=== PATIENT | male | born 1995 | race Caucasian/White ===

== ENCOUNTER 2018-03-24 12:19 | Emergency (ER) | payer OTHER, SELFPAY ==
[2018-03-24 12:20] VITALS: BP 157/96; PULSE 91; RESP 16; TEMP 36.8; O2SAT 98; BMI 41.0
--- NOTE | 2018-03-24 12:31 | ED.VISSUMM ---
- ER Visit Summary Date of Service: 03/24/18 Chief Complaint: Back pain History of Present Illness: The patient is a 22 M presents to the emergency department left-sided back pain. Patient states that yesterday, he was in his normal state of health. He states he was at work and sneezed. He had sudden onset stabbing pain in his left back that brought him to his knees. He states since then, he said tightness in his back. It is worse when he bears weight on left foot. He does get a burning pain down his posterior thigh. He denies any trouble with bowel or bladder. He denies any perianal numbness or tingling. He has no history of IV drug abuse. He has taken some anti-inflammatories with little relief. Physical Examination: Afebrile, vitals unremarkable. Well-appearing female no acute distress. Head is normocephalic, atraumatic. Pupil's equal round reactive, extraocular muscles intact. Neck supple. Heart regular rate and rhythm. Lungs clear, chest nontender. Abdomen soft, nontender, nondistended. No pulsatile mass. Patient has paraspinal tenderness in the lumbar area, but no bony tenderness. Straight leg raise is negative bilaterally. 2+ symmetric lower extremity pulses. 2+ reflexes. No clonus. No weakness of dorsiflexion, plantar flexion, or extensor hallucis longus bilaterally. Test Results: [] Emergency Department Course and Treatment: The patient's pain does seem entirely muscular. I do feel there may be a component of disc injury given the symptoms. There is no evidence of cauda equina. He has no risk factors for discitis or epidural abscess. His exam is reassuring. The patient was treated with IM analgesics and antispasmodics. He is resting comfortably. At this time, I do feel that he is safe for outpatient therapy. Patient is comfortable this plan of care. Treatment Plan: [] Disposition: [] Impression: [] This note was generated with [employer] dictation software. It may contain incorrect words, spelling, and punctuation that were not noted in review of the chart prior to signing ED Disposition - Plan for ED Patient: Chief Complaint: Back Instructions: ED Sprain Strain Lumbar Prescriptions: Naproxen [Naprosyn] 500 mg PO BID PRN #20 tab Cyclobenzaprine [Flexeril] 10 mg PO TID PRN #20 tab PRN Reason: Muscle Spasm Referrals: Baljinder Long PA [Primary Care Provider] -
[2018-03-24] MEDS: Orphenadrine 60 MG/2 ML Ampul IM (12:47)
[2018-03-24] MEDS: Ketorolac 60 MG/2 ML Vial IM (12:47)
[2018-03-24 13:09] VITALS: BP 131/70; PULSE 86; RESP 18; O2SAT 95
--- NOTE | 2018-03-24 13:09 | ED.RN ---
REVIEWED D/C INSTRUCTIONS, FOLLOW UP CARE, PRESCRIPTIONS, AND S/S THAT WOULD WARRANT A RETURN TO THE ED WITH PT. PT VERBALIZED AN UNDERSTANDING AND DENIES FURTHER QUESTIONS FOR THIS RN. PT SKIN P/W/D, RESP EVEN AND UNLABORED, PT A&O X 3, NO DISTRESS NOTED. PT AMBULATED OUT OF ED, GAIT STEADY.
== END 2018-03-24 13:11 | disposition home or self-care (01) ==
LOC: ED 12:40
PROVIDERS: Emergency Provider Emergency Medicine
DX: S39.012A Strain of muscle, fascia and tendon of lower back, initial encounter (principal); X58.XXXA Exposure to other specified factors, initial encounter; Y93.9 Activity, unspecified; Y92.9 Unspecified place or not applicable; Y99.9 Unspecified external cause status
CPT/HCPCS: 96372; 99282

== ENCOUNTER 2018-05-23 04:00 | Emergency (ER) | payer OTHER, SELFPAY ==
[2018-05-23 04:02] VITALS: BP 157/82; PULSE 97; RESP 18; TEMP 36.8; O2SAT 96; BMI 41.9
--- NOTE | 2018-05-23 04:25 | ED.DCSUM_ITS ---
- ER Visit Summary Date of Service: 05/23/18 Chief Complaint: Coughed up blood History of Present Illness: The patient is a 22 M who woke this morning with reflux and epigastric pain. He states he coughed up some phlegm with blood. He has noted more reflux symptoms of the past week or 2. He has been taking Tums occasionally. He has not been taking a lot of anti-inflammatories. He has not noted dark tarry stools. Physical Examination: Blood pressure is 157/82, other vitals normal. Patient sitting upright in bed no acute distress. Head and neck examination is unremarkable. Heart is regular rate and rhythm. Lung sounds are clear. Abdomen is soft with mild epigastric tenderness. No guarding or rebound. Active bowel sounds are noted. Test Results: [] Emergency Department Course and Treatment: Patient is given Protonix and GI cocktail. He will be started on Prilosec. We discussed placement of NG tube to determine if he truly has gastric bleeding, but this will not change our overall management. He will be referred to Dr. Dawn, on-call for surgery for possible EGD if he is not improving. Treatment Plan: [] Disposition: Discharge Impression: GERD This note was generated with [employer] dictation software. It may contain incorrect words, spelling, and punctuation that were not noted in review of the chart prior to signing ED Disposition - Plan for ED Patient: Chief Complaint: Other, Pain/Inj Referrals: [facility] Doctor,Out of [Primary Care Provider] -
--- NOTE | 2018-05-23 04:27 | DCINST.ED_ITS ---
ED Disposition - Plan for ED Patient: Disposition: Home or Assisted Living Chief Complaint: Other, Pain/Inj Instructions: ED GERD Prescriptions: Omeprazole [Prilosec] 20 mg PO DAILY #30 capsule Referrals: [facility] Doctor,Out of [Primary Care Provider] - Uday Dawn MD [STAFF PHYSICIAN] - As Needed
[2018-05-23] MEDS: Mag Hydrox/Al Hydrox/Simeth 30 ML UDC PO (04:50)
[2018-05-23] MEDS: Pantoprazole Sodium 40 MG Tablet PO (04:50)
[2018-05-23 05:16] VITALS: BP 144/80; PULSE 84; RESP 16; O2SAT 95
== END 2018-05-23 05:17 | disposition home or self-care (01) ==
LOC: ED 04:48
PROVIDERS: Emergency Provider Emergency Medicine; Family Provider Family Medicine; PCP Family Medicine
DX: K21.9 Gastro-esophageal reflux disease without esophagitis (principal); R10.9 Unspecified abdominal pain; Z87.891 Personal history of nicotine dependence
CPT/HCPCS: 99283

== ENCOUNTER → 2019-06-30 08:21 | Outpatient (CLI) | payer MEDICAID, SELFPAY ==
[2019-06-29 14:53] VITALS: BMI 45.6
[2019-06-30 12:04] LABS: Absolute Lymphocyte Count 2.72 X10^3/uL (0.83-4.51); Absolute Neutrophil Count 4.8 X10^3/uL (2.0-7.7); Basophil# 0.08 X10^3/uL; Basophil% 0.9 % (0-1); Eosinophil# 0.09 X10^3/uL; Hematocrit 49.8 % (40-54); Hemoglobin 15.6 g/dL (13.0-16.5); Lymphocyte # 2.72 X10^3/ul (4.0); Lymphocyte % 31.3 % (19-41); Mean Corp Hgb Conc 31.3 g/dL (32-36); Mean Corpuscular Hgb 28.5 pg (27.0-32.0); Mean Corpuscular Volume 90.9 fL (80-94); Mean Platelet Vol. 12.1 fl (6.2-12.0); Monocyte# 0.97 X10^3/uL; Monocyte% 11.2 % (0-10); NRBC Flagged by Analyzer 0 % (0-5); Neutrophil % 55.3 % (47-70); Platelet Count 199 K/mm3 (150-450); RBC Distribution Width CV 12.8 % (11.6-14.6); RBC Distribution Width SD 42.6 fl (35.1-43.9); Red Blood Count 5.48 M/mm3 (4.6-6.2); White Blood Count 8.7 K/mm3 (4.4-11.0)
[2019-06-30 12:34] LABS: Hemoglobin A1c 6.3 % (4.2-6.3)
[2019-06-30 12:37] LABS: ALB/GLOB Ratio 0.8 RATIO (0.9-2.4); AST(SGOT) 48 U/L (15-37); Alanine Aminotransfer ALT/SGPT 102 U/L (16-61); Albumin, Serum 3.9 g/dL (3.2-5.0); Alkaline Phosphatase 75 U/L (45-117); Anion Gap 3 (5-15); BUN 12 mg/dL (7-18); BUN/Creat Ratio 13.6 RATIO (10-20); Chloride 108 mmol/L (98-107); Cholesterol 80 mg/dL (200); Creatinine, Serum 0.88 mg/dL (0.70-1.30); EST Glomerular Filtration Rate 113 mL/min (>60); Est Glom Filt Rate - Afr Amer 137 mL/min (>60); Globulin 4.6 g/dL (2.2-4.2); Glucose 102 mg/dL (74-106); High Density Lipoprotein 42 mg/dL; Potassium 4.3 mmol/L (3.5-5.1); Protein, Total 8.5 g/dL (6.4-8.2); Sodium Level 138 mmol/L (136-145); T4 Free Direct 0.98 ng/dL (0.76-1.46); Thyroid Stim Hormone (TSH) 1.32 uIU/mL (0.358-3.74); Triglycerides 41 mg/dL; Very Low Density Lipoprotein 8 mg/dL (5-40)
== END ==
PROVIDERS: Family Provider Family Medicine; PCP Internal Medicine; Visit Provider Internal Medicine
DX: I10 Essential (primary) hypertension (principal); F32.9 Major depressive disorder, single episode, unspecified; E66.01 Morbid (severe) obesity due to excess calories; Z68.41 Body mass index [BMI] 40.0-44.9, adult
CPT/HCPCS: 36415; 80053; 80061; 83036; 84439; 84443; 85025

== ENCOUNTER → 2019-07-07 09:14 | Outpatient (CLI) | payer MEDICAID, SELFPAY ==
[2019-06-29 14:53] VITALS: BMI 45.6
--- NOTE | 2019-07-07 09:16 | US_ITS ---
STUDY: ABDOMINAL ULTRASOUND - RIGHT UPPER QUADRANT REASON FOR VISIT: Male, 23 years old elevated liver function tests. TECHNIQUE: Ultrasound evaluation of the right upper quadrant was performed with real-time and static fontenot-scale imaging. TECHNICAL QUALITY: Limited. Examination limited due to obesity. COMPARISON: None. FINDINGS: Liver: The liver is enlarged and measures 20.7 cm. There is increased echogenicity consistent with fatty infiltration. The bile ducts are within normal limits. There is hepatic color flow. The direction of portal flow is hepatopetal. There is no demonstrated mass lesion. Gallbladder: Normal distended gallbladder. The gallbladder wall measures 1.3 mm. There is a negative sonographic Davila's sign. There is no pericholecystic fluid. There are no gallstones. Common Bile Duct (C.B.D.): The common bile duct measures 2.9 mm. Pancreas: Normal size of the head, body and tail of the pancreas. There is increased echogenicity of the pancreas. There is no demonstrated pancreatic mass or cyst. Right Kidney: Normal size of the right kidney. The right kidney measures 12.6 cm x 6.9 cm x 5.1 cm. Normal renal cortex. The right cortex measures 1.8 cm. There is no demonstrated renal mass or cyst. There is no right hydronephrosis. US/Abdomen Limited IMPRESSION: Hepatomegaly. Diffuse fatty infiltration. Electronically Signed: Kenroy Garcia, at 15:15 EDT , Service support ,
== END ==
PROVIDERS: Family Provider Internal Medicine; PCP Internal Medicine; Referring Provider Internal Medicine; Visit Provider Internal Medicine
DX: R74.8 Abnormal levels of other serum enzymes (principal)
CPT/HCPCS: 76705

== ENCOUNTER → 2019-09-29 09:21 | Outpatient (CLI) | payer MEDICAID, SELFPAY ==
[2019-09-29 08:52] VITALS: BMI 47.1
[2019-09-29 12:54] LABS: AST(SGOT) 66 U/L (15-37); Alanine Aminotransfer ALT/SGPT 116 U/L (16-61); Alkaline Phosphatase 62 U/L (45-117); Anion Gap 4 (5-15); BUN 15 mg/dL (7-18); BUN/Creat Ratio 14.6 RATIO (10-20); Calcium,Total 9.5 mg/dL (8.5-10.1); Chloride 106 mmol/L (98-107); Creatinine, Serum 1.03 mg/dL (0.70-1.30); EST Glomerular Filtration Rate 95 mL/min (>60); Est Glom Filt Rate - Afr Amer 115 mL/min (>60); Globulin 4.2 g/dL (2.2-4.2); Glucose 113 mg/dL (74-106); Potassium 4.6 mmol/L (3.5-5.1); Protein, Total 8.2 g/dL (6.4-8.2); Sodium Level 140 mmol/L (136-145)
== END ==
PROVIDERS: PCP Internal Medicine; Referring Provider Internal Medicine; Visit Provider Internal Medicine
DX: I10 Essential (primary) hypertension (principal)
CPT/HCPCS: 36415; 80053

== ENCOUNTER → 2020-06-07 10:16 | Outpatient (CLI) | payer MEDICAID, SELFPAY ==
[2020-06-07 10:07] VITALS: BMI 47.1
[2020-06-07 12:15] LABS: Absolute Lymphocyte Count 2.56 X10^3/uL (0.83-4.51); Absolute Neutrophil Count 7.1 X10^3/uL (2.0-7.7); Basophil# 0.04 X10^3/uL; Basophil% 0.4 % (0-1); Eosinophil# 0.13 X10^3/uL; Eosinophils% 1.2 % (0-5); Hematocrit 47.2 % (40-54); Hemoglobin 14.7 g/dL (13.0-16.5); Lymphocyte # 2.56 X10^3/ul (4.0); Lymphocyte % 22.9 % (19-41); Mean Corp Hgb Conc 31.1 g/dL (32-36); Mean Corpuscular Hgb 28.2 pg (27.0-32.0); Mean Corpuscular Volume 90.4 fL (80-94); Mean Platelet Vol. 12.6 fl (6.2-12.0); Monocyte# 1.34 X10^3/uL; NRBC Flagged by Analyzer 0 % (0-5); Neutrophil # 7.06 X10^3/uL (2.7-7.7); Neutrophil % 63.2 % (47-70); Platelet Count 175 K/mm3 (150-450); RBC Distribution Width CV 12.9 % (11.6-14.6); RBC Distribution Width SD 43.2 fl (35.1-43.9); Red Blood Count 5.22 M/mm3 (4.6-6.2); White Blood Count 11.2 K/mm3 (4.4-11.0)
[2020-06-07 12:40] LABS: ALB/GLOB Ratio 0.9 RATIO (0.9-2.4); AST(SGOT) 39 U/L (15-37); Alanine Aminotransfer ALT/SGPT 84 U/L (16-61); Albumin, Serum 3.7 g/dL (3.2-5.0); Alkaline Phosphatase 55 U/L (45-117); Anion Gap 2 (5-15); BUN 14 mg/dL (7-18); BUN/Creat Ratio 16.8 RATIO (10-20); Calcium,Total 8.9 mg/dL (8.5-10.1); Chloride 110 mmol/L (98-107); Cholesterol 77 mg/dL (200); Creatinine, Serum 0.83 mg/dL (0.70-1.30); EST Glomerular Filtration Rate 121 mL/min (>60); Est Glom Filt Rate - Afr Amer 146 mL/min (>60); Globulin 4.3 g/dL (2.2-4.2); Glucose 105 mg/dL (74-106); High Density Lipoprotein 45 mg/dL; Potassium 4.4 mmol/L (3.5-5.1); Sodium Level 141 mmol/L (136-145); Triglycerides 30 mg/dL; Very Low Density Lipoprotein 6 mg/dL (5-40)
== END ==
PROVIDERS: PCP Internal Medicine; Referring Provider Internal Medicine; Visit Provider Internal Medicine
DX: I10 Essential (primary) hypertension (principal)
CPT/HCPCS: 36415; 80053; 80061; 85025

== ENCOUNTER 2020-06-09 05:52 | Emergency (ER) | payer MEDICAID, SELFPAY ==
[2020-06-07 10:07] VITALS: BMI 47.1
[2020-06-09 05:53] VITALS: BP 150/91; PULSE 95; RESP 18; TEMP 36.1; O2SAT 96; BMI 49.8
--- NOTE | 2020-06-09 06:07 | ED.VIS.GEN ---
History of Present Illness Chief Complaint: Complaint Informant: Patient Narrative: Patient is a 24-year-old previously healthy male who presents to the emergency department for blood in the urine. He states he is never had this happen before in the past. He noticed that this morning. He had 2 episodes of urination with bright red blood in it. This last time that he urinated it resolved. He denies having any pain with this. No concern for STDs. He denies any back pain that is past his baseline issues. No abdominal pain. No nausea/vomiting. He did have a bowel movement this morning that had some blood in it but he relates that to a hemorrhoid. No easy bleeding or bruising elsewhere. Denies any chest pain, shortness of breath or lightheadedness. He is not on any anticoagulation. No history of kidney stones. No previous abdominal surgeries. Past Medical History - Allergies and Home Meds Allergies/Adverse Reactions: Allergies No Known Allergies Allergy (Verified 06/07/20 10:07) Primary Care Physician: Aria Ovalle MD [Primary Care Provider] - Past Medical History: None Surgical History: - - Facial reconstruction, cyst removals Smoking Status: Former smoker Alcohol: Rare Drugs: None Review of Systems All systems negative except as indicated General: Denies: Chills, Fever, Sweats Eyes: Denies: Visual changes - bilaterally, Diplopia ENT: Denies: Rhinorrhea, Sore throat Cardiovascular: Denies: Chest pain, Palpitations Respiratory: Denies: Dyspnea, Cough, Dyspnea on exertion Gastrointestinal: Denies: Abdominal pain, Nausea, Vomiting, Diarrhea Genitourinary: Reports: Hematuria. Denies: Dysuria, Frequency Musculoskeletal: Denies: Back pain, Extremity Pain Skin: Denies: Rash, Wounds Neurological: Denies: Headache, Weakness, Numbness Physical Exam Vital Signs/Narrative: Vital Signs Temp Pulse Resp BP Pulse Ox 06/09/20 05:53 97 F L 95 18 150/91 H 96 Inital Vital Signs reviewed: Yes General: Well nourished, Well developed, No Acute Distress Head: Normocephalic, Atraumatic Eyes: Perrl, EOMI ENT: Moist mucous membranes, No rhinorrhea Neck: Supple, Nontender Cardiovascular: Regular rate, Regular rhythm, No murmurs Respiratory: No distress, CTA bilaterally, Chest nontender Abdomen: Soft, Nontender, Nondistended, Normal bowel sounds Back: Nontender, Normal Inspection. Negative for: CVA tenderness, Spinal tenderness Extremities: Nontender, No edema Skin: Normal color, No rash Neurological: Alert, Oriented x3, Normal Strength, Normal Sensation Psychological: Normal affect, Normal Mood Diagnostic/Tx/Re-eval - Medical Decision Making Patient presents to the emergency department for hematuria. Upon arrival to the emergency department vital signs within normal limits. Physical exam is benign without any pain. Patient able to give urine sample here in the ED. Urinalysis did not show any significant evidence of UTI. No red blood cells present. Patient otherwise feels well. Vital signs within normal limits. He is follow-up with his PCP and have a repeat urinalysis performed to evaluate for complete resolution. If he develops any significant back pain, fever/chills or inability to urinate he is to return to the emerge department immediately. Patient understands and is agreeable this plan. Will discharge home in stable condition. ED Disposition - Plan for ED Patient: Disposition: Home or Assisted Living Diagnosis: Hematuria Instructions: ED Hematuria Referrals: Aria Ovalle MD [Primary Care Provider] - 1 Week Additional Instructions: Need repeat urinalysis in 1-2 weeks to be reevaluated.
[2020-06-09 06:12] LABS: Bacteria 0 SEEN /hpf (None Seen); Mucous, Urine 0 SEEN /hpf (<or=2+)
[2020-06-09 06:21] LABS: Color, Urine Yellow (Yellow); Glucose, Dipstick Normal (Normal); Ketone-Dipstick Negative (Negative); Leukocyte Esterase-Dipstick 25 /ul (Negative); Nitrite-Dipstick Negative (Negative); Occult Blood-Urine 25 /ul (Negative); Protein-Dipstick 15 mg/dl (Negative); Urine Bilirubin Dipstick Negative (Negative); Urine Clarity Sl. Cloudy (Clear); Urine Urobilinogen Normal (Normal)
[2020-06-09 07:06] LABS: Red Blood Cells-Urine 0-5 SEEN /hpf (0-5); Squamous Epithelial Cells - UA 0-5 SEEN /hpf (0-5); White Blood Cells 0-5 SEEN /hpf (0-5)
== END 2020-06-09 07:27 | disposition home or self-care (01) ==
PROVIDERS: Emergency Provider Emergency Medicine; PCP Internal Medicine
DX: R31.9 Hematuria, unspecified (principal); K64.9 Unspecified hemorrhoids; Z87.891 Personal history of nicotine dependence
CPT/HCPCS: 81001; 99282

== ENCOUNTER → 2020-06-21 | Outpatient (CLI) | payer MEDICAID, SELFPAY ==
[2020-06-21 08:09] LABS: Mucous, Urine 0 SEEN /hpf (<or=2+); Red Blood Cells-Urine 0 SEEN /hpf (0-5)
[2020-06-21 12:24] LABS: Color, Urine Straw (Yellow); Glucose, Dipstick Normal (Normal); Ketone-Dipstick Negative (Negative); Leukocyte Esterase-Dipstick Negative /ul (Negative); Nitrite-Dipstick Negative (Negative); Occult Blood-Urine Negative /ul (Negative); Protein-Dipstick Negative (Negative); Specific Gravity, Urine 1.015 (1.002-1.030); Urine Bilirubin Dipstick Negative (Negative); Urine Clarity Clear (Clear); Urine Urobilinogen Normal (Normal)
[2020-06-21 12:39] LABS: Squamous Epithelial Cells - UA 0-5 SEEN /hpf (0-5); White Blood Cells 0-5 SEEN /hpf (0-5)
[2020-06-21 12:40] LABS: Bacteria RARE /hpf (None Seen)
== END | disposition home or self-care (01) ==
LOC: LABSPEC 08:08
PROVIDERS: PCP Internal Medicine; Referring Provider Nurse Practitioner Family; Visit Provider Nurse Practitioner Family
DX: R31.9 Hematuria, unspecified (principal)
CPT/HCPCS: 81001

== ENCOUNTER → 2020-06-24 07:43 | Outpatient (CLI) | payer MEDICAID, SELFPAY ==
[2020-06-09 05:53] VITALS: BMI 49.8
--- NOTE | 2020-06-24 07:43 | US_ITS ---
STUDY: ABDOMINAL ULTRASOUND - RIGHT UPPER QUADRANT REASON FOR VISIT: Male, 24 years old ABN LABS TECHNIQUE: Ultrasound evaluation of the right upper quadrant was performed with real-time and static fontenot-scale imaging. TECHNICAL QUALITY: Adequate. COMPARISON: None. FINDINGS: Liver: The liver measures 21.8 cm. There is increased echogenicity consistent with fatty infiltration. There is focal sparing near the gallbladder bed. The bile ducts are within normal limits. There is hepatic color flow. The direction of portal flow is hepatopetal. There is no demonstrated mass lesion. Gallbladder: Normal distended gallbladder. The gallbladder wall measures 2.6 mm. There is a negative sonographic Davila''s sign. There is no pericholecystic fluid. There are no gallstones. Common Bile Duct (C.B.D.): The common bile duct measures 5.3 mm. Pancreas: Normal size of the head, body and tail of the pancreas. There is normal echogenicity of the pancreas. There is no demonstrated pancreatic mass or cyst. Right Kidney: Normal size of the right kidney. The right kidney measures 12.4 x 5.7 x 4.4 cm. Normal renal cortex. The right cortex measures 2 cm. There is no demonstrated renal mass or cyst. There is no right hydronephrosis. US/Abdomen Limited IMPRESSION: Fatty infiltration of the liver. Electronically Signed: Hannah Gill, at 1:46 EDT Tel , Service support ,
== END ==
PROVIDERS: PCP Internal Medicine; Referring Provider Internal Medicine; Visit Provider Internal Medicine
DX: R74.8 Abnormal levels of other serum enzymes (principal)
CPT/HCPCS: 76705

== ENCOUNTER → 2020-07-02 11:24 | Outpatient (CLI) | payer MEDICAID, SELFPAY ==
[2019-10-27 17:01] VITALS: BMI 47.1
[2020-06-09 05:53] VITALS: BMI 49.8
--- NOTE | 2020-07-02 11:25 | US_ITS ---
HISTORY: left testicle lump and tenderness ADDITIONAL HISTORY: None provided. COMPARISON: None TECHNIQUE: Sonographic images of the scrotum were acquired utilizing grayscale and color Doppler images. Spectral Doppler imaging also performed. Number of images including paperwork: 86 FINDINGS: TESTES: Right testis: 5.1 x 2.7 x 3.4 cm. Left testis: 4.9 x 2.3 x 3.0 cm. Testicular echogenicity appears symmetric. Testicular flow is seen bilaterally on Doppler imaging, essentially symmetric. Cyst is noted along the periphery of the left testis anteriorly measuring 7 x 7 x 5 mm. EPIDIDYMIDES: Normal in size with normal-appearing flow. HYDROCELE: None detected. VARICOCELE: None detected. SCROTAL SKIN: No significant thickening. US/Testicular with Arterial Flow IMPRESSION: No acute scrotal abnormality is sonographically apparent. Left sided tunica albuginea cyst. at [id number] Reported and signed by: Romana Silver MD Electronically Signed: Romana Silver MD at 22:58 EDT Tel , Service support ,
== END ==
PROVIDERS: PCP Internal Medicine; Referring Provider Nurse Practitioner Family; Visit Provider Nurse Practitioner Family
DX: N50.812 Left testicular pain (principal); N50.89 Other specified disorders of the male genital organs
CPT/HCPCS: 76870; 93976

== ENCOUNTER 2021-06-10 13:17 | Emergency (ER) | payer MEDICAID, SELFPAY ==
[2021-06-10 13:18] VITALS: BP 160/100; PULSE 96; RESP 18; TEMP 36.4; O2SAT 97; BMI 47.5
--- NOTE | 2021-06-10 14:35 | RAD_ITS ---
INDICATION: Injury/Pain EXAMINATION/TECHNIQUE: X-RAY - XR Spine Lumbar 2 or 3 Views COMPARISON: None. FINDINGS: Straightening of the alignment of the columns of the lumbar spine is visualized, no evidence of spondylolisthesis is seen. Multilevel degenerative endplate changes visualized but no evidence of compression deformity of the lumbar vertebral bodies. Decreased intervertebral disc height visualized most prominent at L5-S1 and to a lesser extent at L1-L2. Increased density visualized in the posterior column at L5. No evidence of lytic or sclerotic bone lesion is seen. Included bowel gas pattern is non-obstructive. IMPRESSION: Mild degenerative changes, no acute osseous abnormality seen. Electronically Signed: Franco Gonsalez MD at 15:31 EDT Tel , Service support , RAD/Lumbar Spine 2 or 3 Views
--- NOTE | 2021-06-10 14:41 | EDS_ITS ---
HPI History of Present Illness Chief Complaint: Back Informant: patient Onset/Context/Timing Onset: Weeks (3) Context: Gradual Onset Timing: Continuous Quality: Sharp and Aching Location: Lumbar, Buttock, Right Leg and Left Leg Worsened by: improves with Movement, Ambulation and Bending Relieved by: Nothing Associated Symptoms Associated Symptoms: Radiation to Right Leg and Radiation to Left Leg; Negative for Numbness, Tingling, Fever, Abdominal Pain, Dysuria, Unable to Ambulate, Unable to Transfer, Urinary Retention, Urinary Incontinence, Constipation and Fecal Incontinence Narrative Narrative: Patient presents with back pain that has been getting worse over the past 3 weeks. Patient states it is over his lower lumbar area. Patient states it radiates into both legs but is worse on the left. Patient states his pain is worse with any movement, ambulation, or bending. Patient states nothing seems to help with the pain. Patient states that he went to a chiropractor yesterday and today his pain was much worse. Patient describes his pain is sharp at times but constant aching. Patient denies any radiation of the pain to his abdomen. Patient denies any dysuria or hematuria. Patient denies any urinary or stool incontinence. Patient denies any saddle anesthesia. [facility] Medical History (Updated 06/10/21 @ 16:[address] Nathaniel Yu DO) Back problem Bone fracture Frequent headaches Hypertension Sciatica Medical History no medical history Home Medications cyclobenzaprine 10 mg PO QHS PRN PRN #10 tablet 06/10/21 [Rx Last Taken Unknown] hydrocodone-acetaminophen 1 tab PO Q6H PRN PRN 3 Days #10 tablet 06/10/21 [Rx Last Taken Unknown] Allergy/AdvReac Type Severity Reaction Status Date / Time No Known Allergies Allergy Verified 06/07/20 10:07 Family History Other Cancer Diabetes High cholesterol Hypertension Surgical History History of facial surgery History of removal of cyst Social History Smoking Status: Never smoker alcohol intake: current alcohol intake frequency: holidays/special occasions only Alcohol type: beer substance use type: does not use what type of physical activity do you participate in: none ROS ROS ED Constitutional Constitutional ED: Denies chills or fever(s) Eyes Eyes: Denies blurry vision or change in vision ENT ENT ED: Denies rhinorrhea or sore throat Cardiovascular Cardiovascular: Denies chest pain or palpitations Respiratory/Chest Respiratory/Chest: Denies cough or dyspnea Gastrointestinal Gastrointestinal: Denies nausea or vomiting Genitourinary Genitourinary ED: Denies dysuria or hematuria Musculoskeletal Musculoskeletal: Reports back pain; Denies neck pain Integumentary Denies abscess or rash Neurologic Neurologic: Reports headache(s); Denies weakness Allergic/Immunologic Allergic/Immunologic ED: Denies mouth swelling or urticaria EXAM Physical Exam Const Vital Signs: 06/10/21 13:18 Temperature 97.5 F L Temperature Source Temporal Pulse Rate 96 Respiratory Rate 18 Blood Pressure 160/100 H Blood Pressure Mean 120 Pulse Ox 97 Oxygen Delivery Method Room Air Positive well nourished, well developed and obese General Appearance ED: well developed Nutritional Appearance: obese HEENT Reports moist mucous membranes Neck supple and no JVD Back/Spine normal to inspection Back/Spine Narrative: There is some mild tenderness with spasm of the lumbar paraspinal muscles. There is mild midline tenderness. There is no bony crepitance or step-off. Lumbar Spine / Lower Back: ROM limited and straight leg raise negative bilate rally Extremity normal to inspection General Extremety ED: Negative for edema or tenderness General Extremity: Negative for edema Neuro oriented x3 and no sensory deficits noted Sensorium / Orientation: alert Motor Exam: strength 5/5 throughout Deep Tendon Reflexes: Rt Patellar (L4): 2+, Lt Patellar (L4): 2+, Rt Ankle (S1): 2+ and Lt Ankle (S1): 2+ Deep Tendon Reflexes Back: Rt Patellar (L4): 2+, Lt Patellar (L4): 2+, Rt Ankle (S1): 2+ and Lt Ankle (S1): 2+ Psych mental status grossly normal MDM MDM MDM Narrative Medical decision making narrative: X-rays of the lumbar spine were obtained. There are 3 views. On my interpretation, there are some mild degenerative changes. There is no acute fracture or spondylolisthesis. Radiologist also interpreted the x-rays and agrees. Patient was given an injection of morphine a nd Norflex here. Patient was given a prescription for a short course of [place] and a course of Flexeril to take at bedtime. Patient was instructed to follow- up with his primary care physician in 5 to 7 days. Patient understood and was agreeable with the plan. All questions were answered. Radiography X-Ray: LS SPine, Read by ED Physician, Read by Radiologist, No Fracture, Normal Bony Alignment and DJD Diagnostic Testing: Radiology Impression Lumbar Spine X-Ray 06/10/21 14:35 Discharge Plan Triage Chief Complaint: Back ED Provider: Nathaniel Yu Dx/Rx/DC Orders Clinical Impression: Acute low back pain Instructions: ED Back Pain (Acute or Chronic) Prescriptions: New cyclobenzaprine [cyclobenzaprine] 10 MG tablet 10 mg PO QHS PRN PRN (Reason: Muscle Spasm) Qty: 10 RF: 0 hydrocodone-acetaminophen [hydrocodone-acetaminophen] 1 TABLET tablet 1 tab PO Q6H PRN PRN (Reason: Pain) 3 Days Qty: 10 RF: 0 Primary Care Provider: Aria Ovalle Referrals: Aria Ovalle MD [Primary Care Provider] - 3-5 Days Disposition Disposition: Home, Self Care
[2021-06-10] MEDS: Morphine 4 MG/ML Syringe IM (14:52)
[2021-06-10] MEDS: Orphenadrine 60 MG/2 ML Ampul IM (14:52)
[2021-06-10 16:47] VITALS: BP 150/88; PULSE 68; RESP 12; O2SAT 98
== END 2021-06-10 16:50 | disposition home or self-care (01) ==
PROVIDERS: Emergency Provider Emergency Medicine; PCP Internal Medicine
DX: M54.50 Low back pain, unspecified (principal); I10 Essential (primary) hypertension; R51.9 Headache, unspecified; E66.9 Obesity, unspecified
CPT/HCPCS: 72100; 96372; 99282

== ENCOUNTER 2024-12-27 09:51 | Inpatient (IN) | payer BC, SELFPAY ==
[2024-12-27] VITALS (11 sets, daily range): BP systolic 118–141; BP diastolic 50–87; PULSE 59–90; RESP 10–27; TEMP 35.6–37.2; O2SAT 94–99; BMI 40.2; BMI 40.1
--- NOTE | 2024-12-27 10:07 | ED.VIS.GI ---
HPI HPI - GI History of Present Illness Chief Complaint: Flank Pain Detail of Chief Complaint: Left flank pain Informant: patient Narrative Narrative: Patient presents with left flank pain that started few days ago. Patient states that he came down with some upper respiratory symptoms about a week ago and thought maybe he had pneumonia because his son was recently diagnosed with pneumonia yesterday. Patient started having left low back pain yesterday and lower abdomen pain today. Yesterday he had fever up to 1029 at home. Patient went to urgent care this morning and had his urine tested and apparently was infected so he was referred to the ER. Patient has never had history of UTI. No history of diverticulitis. He has had no vomiting. Denies any blood in the stool. [facility] Medical History (Updated 12/27/24 @ 11:[address] Vivien Garsia DO) Sciatica Hypertension Frequent headaches Bone fracture Back problem Home Medications ?Medication ?Instructions ?Recorded ?Last Taken ?Type NK 12/27/24 Unknown History Allergy/AdvReac Type Severity Reaction Status Date / Time No Known Allergies Allergy Verified 12/27/24 10:31 Family History Other Cancer Diabetes High cholesterol Hypertension Surgical History History of facial surgery History of removal of cyst Social History Smoking Status: Never smoker alcohol intake: current alcohol intake frequency: holidays/special occasions only Alcohol type: beer substance use type: does not use what type of physical activity do you participate in: none ROS ROS ED Review of Systems ROS Unobtainable: other Constitutional Constitutional ED: Reports lethargy; Denies chills, fever(s), sweats or weight loss Eyes Eyes: Denies blurry vision, change in vision or diplopia ENT ENT ED: Denies rhinorrhea or sore throat Cardiovascular Cardiovascular: Denies chest pain, orthopnea or racing heartbeat Respiratory/Chest Respiratory/Chest: Denies cough, dyspnea, dyspnea on exertion, orthopnea or sputum Gastrointestinal Gastrointestinal: Reports abdominal pain; Denies diarrhea, nausea or vomiting Genitourinary Genitourinary ED: Denies dysuria, hematuria or urinary frequency Musculoskeletal Musculoskeletal: Denies arthralgias, back pain, myalgias or neck pain Integumentary Denies abscess, Abrasions or rash Neurologic Neurologic: Denies headache(s) or weakness Psychiatric Psychiatric: Denies anxiety, depression or suicidal thoughts Endocrine Endocrinology: Denies polydipsia, polyphagia or polyuria Hematologic/Lymphatic Hematologic/Lymphatic: Denies easy bleeding, easy bruising or lymphadenopathy Allergic/Immunologic Allergic/Immunologic ED: Denies mouth swelling, tongue swelling or urticaria EXAM Physical Exam Const Vital Signs: 12/27/24 09:52 12/27/24 10:29 12/27/24 11:00 Temperature 98.5 F 96.1 F L Temperature Source Temporal Temporal Pulse Rate 90 76 71 Respiratory Rate 16 18 10 L Blood Pressure 137/87 H 141/68 H 137/69 H Blood Pressure Mean 103 92 91 Pulse Ox 99 99 96 Oxygen Delivery Method Room Air Room Air Room Air 12/27/24 11:00 Temperature 98 F Temperature Source Oral Pulse Rate 71 Respiratory Rate 10 L Blood Pressure 137/69 H Blood Pressure Mean 91 Pulse Ox 95 Oxygen Delivery Method Room Air Positive well nourished and well developed General Appearance ED: well developed and NAD HEENT Reports TM's clear and moist mucous membranes normocephalic and atraumatic; Negative for trauma or tenderness Tympanic Membrane ED: Yes TM's clear Eyes PERRL and EOMs intact bilaterally General Eye ED: Negative for pale conjunctiva or scleral icterus Neck no lymphadenopathy, supple and no JVD General: Negative for tenderness Chest Wall inspection of chest normal and palpation of chest normal Chest: Negative for tenderness Resp normal respiratory effort and clear to auscultation bilaterally Effort and Inspection: Negative for respiratory distress or pain with movement Auscultation: Negative for rhonchi, wheezes or diminished lung sounds Cardio regular rate, regular rhythm, S1 normal heart sound, S2 normal heart sound and no murmurs Peripheral Pulses: pulses 2+ throughout GI normal to inspection, nondistended, normoactive bowel sounds, soft to palpation, non-distended and no masses GI Narrative: Tenderness diffusely to the suprapubic region as well as left lower quadrant and some mild tenderness over the right lower quadrant. There are some guarding. There is no rebound, rigidity, or. Signs. No mass palpated. Back/Spine no CVA tenderness and no thoracic nor lumbar tenderness Extremity normal to inspection General Extremety ED: Negative for edema General Extremity: Negative for edema Neuro oriented x3, CN's II-XII intact bilaterally, no sensory deficits noted and gait normal Sensorium / Orientation: awake, alert, oriented to person, oriented to place and oriented to time Motor Exam: strength 5/5 throughout and strength abnormal Psych mental status grossly normal Skin no rashes or lesions noted and no wounds MDM MDM MDM Narrative Medical decision making narrative: Patient presents with abdominal pain and concern for possible UTI at urgent care. No significant medical history other than hypertension. No prior abdominal surgeries. On differential would be UTI versus kidney stone or diverticulitis or other acute process. IV line established. CBC with differential obtained showed an elevated white count of 19.4 with hemoglobin 15 and platelet count of 165. Urinalysis unremarkable. CT scan of the abdomen pelvis showed acute sigmoid diverticulitis with focal contained perforation along the antimesenteric side of the sigmoid colon. Patient was started on Zosyn IV. Will discussed with general surgeon on-call for admission to the hospital and definitive care. Lab Data Attestation: I reviewed the patient's lab results. Labs: Laboratory Results - last 24 hr 12/27/24 12/27/24 10:30 11:07 WBC 19.4 H RBC 5.28 Hgb 15.0 Hct 46.7 MCV 88.4 MCH 28.4 MCHC 32.1 RDW Std Deviation 42.3 RDW Coeff of Gray 13.0 Plt Count 165 MPV 13.0 H Immature Gran % (Auto) 0.500 Neut % (Auto) 71.5 H Lymph % (Auto) 16.2 L [place] % (Auto) 11.3 H Eos % (Auto) 0.1 Baso % (Auto) 0.4 Absolute Neuts (auto) 13.9 H Absolute Lymphs (auto) 3.14 Nucleated RBC % 0 Differential Comment SCANNED Urine Color Yellow Urine Clarity Clear Urine pH 7.0 Ur Specific [place] 1.010 Urine Protein TNP Urine Glucose (UA) Normal Urine Ketones 15 H Urine Occult Blood Negative Urine Nitrite Negative Urine Bilirubin Negative Urine Urobilinogen 4 H Ur Leukocyte Esterase 25 H Radiography Diagnostic Testing: Clinical Impression(s) from Imaging Studies Abdomen/Pelvis CT 12/27/24 10:52 IMPRESSION: Sigmoid diverticulitis. Focal contained perforation along the anti mesenteric side of the sigmoid colon. Reading Location: [facility] Discharge Plan Triage Chief Complaint: Flank Pain ED Provider: Vivien Garsia Dx/Rx/DC Orders Clinical Impression: Acute diverticulitis, Leukocytosis, Bowel perforation Prescriptions: No Action NK Primary Care Provider: Aria Ovalle Referrals: Aria Ovalle MD [Primary Care Provider] - Print Language: Arabic Disposition Disposition: Acute Care Hospital [facility]
[2024-12-27] MEDS: 0.9% Normal Saline (1000mL) 1,000 ML 125 ML IV (10:24)
[2024-12-27 10:38] LABS: Absolute Lymphocyte Count 3.14 X10^3/uL (0.83-4.51); Absolute Neutrophil Count 13.9 X10^3/uL (2.0-7.7); Basophil# 0.07 X10^3/uL; Basophil% 0.4 % (0-1); Eosinophil# 0.02 X10^3/uL; Eosinophils% 0.1 % (0-5); Hematocrit 46.7 % (40-54); Lymphocyte # 3.14 X10^3/ul (0.83-4.51); Lymphocyte % 16.2 % (19-41); Mean Corp Hgb Conc 32.1 g/dL (32-36); Mean Corpuscular Hgb 28.4 pg (27.0-32.0); Mean Corpuscular Volume 88.4 fL (80-94); Monocyte# 2.18 X10^3/uL; Monocyte% 11.3 % (0-10); NRBC Flagged by Analyzer 0 % (0-5); Neutrophil # 13.87 X10^3/uL (2.7-7.7); Neutrophil % 71.5 % (47-70); POSITIVE DIFFERENTIAL YES; Platelet Count 165 K/mm3 (150-450); RBC Distribution Width SD 42.3 fl (35.1-43.9); Red Blood Count 5.28 M/mm3 (4.6-6.2); White Blood Count 19.4 K/mm3 (4.4-11.0)
[2024-12-27 10:41] LABS: Differential Indicated SCAN CRITERIA MET
--- NOTE | 2024-12-27 10:48 | ED.RN ---
Pt had a vagal episode after IV start. It scared the patient and he was tearful. He said he was seeing things but wasnt able to say anything. Pt turned white and was super diaphoretic. He had some posturing and after a couple of seconds came to and was ok. Dr Garsia is aware.
--- NOTE | 2024-12-27 10:52 | CT_ITS ---
PROCEDURE: ABDOMEN/PELVIS WITHOUT CONT 12/27/2024 REASON FOR EXAM: Left flank pain. Left lower quadrant pain. TECHNIQUE: Abdomen and pelvis CT without intravenous contrast. Noncontrast technique limits evaluation of the abdominal and pelvic viscera. Coronal and Sagittal reconstruction series were provided. CT dL volume: 23.97 DLP: 1443.28 One or more dose reduction techniques were used (e.g., Automated exposure control, adjustment of the mA and/or kV according to patient size, use of iterative reconstruction technique). PATIENT PREPARATION: Per protocol ORAL CONTRAST TYPE: None. COMPARISON: None available. FINDINGS: Lung bases: Unremarkable. Liver: Normal size. No obvious mass. Gallbladder: Unremarkable Spleen: Normal size. Pancreas: Normal size. No surrounding inflammation. Adrenals: Unremarkable Kidneys: No urolithiasis. No hydronephrosis. Bladder: Unremarkable Bowel: Sigmoid colon diverticula with wall thickening and adjacent inflammatory changes.. Tiny air bubble is seen along the anti mesenteric side of the sigmoid colon suggestive of localized contained perforation. Appendix: The appendix is not identified. There is no inflammatory process identified in the right lower quadrant to suggest appendicitis. Lymph nodes: Unremarkable. Vasculature: The abdominal aorta and IVC contours are normal. Noncontrast technique limits evaluation. Peritoneum / Retroperitoneum: Bones: Unremarkable CT/Abdomen/Pelvis without Cont IMPRESSION: Sigmoid diverticulitis. Focal contained perforation along the anti mesenteric side of the sigmoid colon. Reading Location: [place] [id number]
[2024-12-27 11:06] LABS: Differential Comment SCANNED
[2024-12-27 11:12] LABS: Bacteria 0 SEEN /hpf (None Seen); Mucous, Urine 0 SEEN /hpf (<or=2+)
[2024-12-27 11:24] LABS: Color, Urine Yellow (Yellow); Glucose, Dipstick Normal (Normal); Ketone-Dipstick 15 mg/dl (Negative); Leukocyte Esterase-Dipstick 25 /ul (Negative); Nitrite-Dipstick Negative (Negative); Occult Blood-Urine Negative /ul (Negative); Urine Bilirubin Dipstick Negative (Negative); Urine Clarity Clear (Clear); Urine Urobilinogen 4 mg/dl (Normal)
[2024-12-27 11:49] LABS: Red Blood Cells-Urine 0-5 SEEN /hpf (0-5); White Blood Cells 5-10 SEEN /hpf (0-5)
[2024-12-27] MEDS: Ondansetron 4 MG/2 ML Vial IV (11:50)
[2024-12-27] MEDS: Morphine 4 MG/ML Syringe IV (11:50)
[2024-12-27 11:53] LABS: Squamous Epithelial Cells - UA 0-5 SEEN /hpf (0-5)
[2024-12-27 11:54] LABS: Coarse Granular Cast 0-5 SEEN /lpf (0-5 /lpf); Fine Granular Cast- Urine 0-5 SEEN /lpf (0-5); Hyaline Cast 0-5 SEEN /lpf (0-5)
[2024-12-27 11:54] LABS: Anion Gap 12 (5-15); BUN 11 mg/dL (4-19); BUN/Creat Ratio 11.2 RATIO (10-20); Calcium,Total 9.3 mg/dL (7.6-11.0); Carbon Dioxide 22.3 mmol/L (21.0-32.0); Chloride 105 mmol/L (98-108); Creatinine, Serum 0.97 mg/dL (0.70-1.20); EST Glomerular Filtration Rate 109 (>60); Glucose 100 mg/dL (70-99); Potassium 3.8 mmol/L (3.3-5.1); Sodium Level 139 mmol/L (133-145)
[2024-12-27] MEDS: Piperacil/Tazobactam 4.5 GM in 0.9% Normal Saline (100mL MB+) 100 ML IV (12:06)
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
--- NOTE | 2024-12-27 15:44 | ED.RN ---
Pt is requesting to walk to the floor on his own instead of a bed or a wheelchair.
[2024-12-27] MEDS: 0.9% Normal Saline (1000mL) 1,000 ML 150 ML IV ×2 (16:27→21:34)
[2024-12-27] MEDS: Piperacil/Tazobactam 3.375 GM in 0.9% Normal Saline (50mL MB+) 50 ML IV ×2 (16:36→21:34)
[2024-12-28 04:17] VITALS: BP 140/68; PULSE 68; RESP 16; TEMP 36.9; O2SAT 98
[2024-12-28] MEDS: 0.9% Normal Saline (1000mL) 1,000 ML 150 ML IV (04:18)
[2024-12-28] MEDS: Piperacil/Tazobactam 3.375 GM in 0.9% Normal Saline (50mL MB+) 50 ML IV ×3 (06:02→23:00)
[2024-12-28 07:02] LABS: Absolute Lymphocyte Count 2.58 X10^3/uL (0.83-4.51); Absolute Neutrophil Count 12.9 X10^3/uL (2.0-7.7); Basophil# 0.06 X10^3/uL; Basophil% 0.3 % (0-1); Eosinophil# 0.05 X10^3/uL; Eosinophils% 0.3 % (0-5); Hematocrit 44.4 % (40-54); Hemoglobin 14.2 g/dL (13.0-16.5); Lymphocyte # 2.58 X10^3/ul (0.83-4.51); Lymphocyte % 14.3 % (19-41); Mean Corpuscular Hgb 28.7 pg (27.0-32.0); Mean Corpuscular Volume 89.9 fL (80-94); Mean Platelet Vol. 13.5 fl (6.2-12.0); Monocyte# 2.14 X10^3/uL; Monocyte% 11.8 % (0-10); NRBC Flagged by Analyzer 0 % (0-5); Neutrophil # 12.91 X10^3/uL (2.7-7.7); Neutrophil % 71.4 % (47-70); POSITIVE DIFFERENTIAL YES; Platelet Count 160 K/mm3 (150-450); RBC Distribution Width CV 13.2 % (11.6-14.6); RBC Distribution Width SD 43.2 fl (35.1-43.9); Red Blood Count 4.94 M/mm3 (4.6-6.2); White Blood Count 18.1 K/mm3 (4.4-11.0)
[2024-12-28 07:12] LABS: Anion Gap 10 (5-15); BUN 11 mg/dL (4-19); BUN/Creat Ratio 11.9 RATIO (10-20); Calcium,Total 9.1 mg/dL (7.6-11.0); Carbon Dioxide 25.6 mmol/L (21.0-32.0); Chloride 105 mmol/L (98-108); Creatinine, Serum 0.92 mg/dL (0.70-1.20); EST Glomerular Filtration Rate 117 (>60); Glucose 97 mg/dL (70-99); Phosphorus 3.3 mg/dL (2.7-4.5); Potassium 4.4 mmol/L (3.3-5.1); Sodium Level 141 mmol/L (133-145)
[2024-12-28 07:39] LABS: Differential Indicated SCAN CRITERIA MET
[2024-12-28 08:00] VITALS: BP 127/42; PULSE 67; RESP 18; TEMP 36.8; O2SAT 99
--- NOTE | 2024-12-28 08:57 | PCM.PN.SRG ---
Subjective Subjective Patient evaluated sitting comfortably in the chair. He notes his abdominal discomfort reaches a 3 out of 10 if palpated. He denies any nausea, vomiting, fever. He notes feeling hungry. Objective Data Objective Data Vital Signs: Vital Signs Temp Pulse Resp BP Pulse Ox O2 Del Method 98.3 F 67 18 127/42 H 99 Room Air 12/28/24 08:00 12/28/24 08:00 12/28/24 08:00 12/28/24 08:00 12/28/24 08:00 12/28/24 08:00 Oxygen Delivery Method Room Air Weight: 321 lb Body Mass Index (BMI) 40.1 Intake & Output: Intake and Output for Last 24 Hours 12/26/24 12/27/24 12/28/24 23:59 23:59 23:59 Intake Total 1700.83 / 1750.83 1150 / 1150 Balance 1700.83 / 1750.83 1150 / 1150 Lab / Micro Data 12/28/24 05:54 12/28/24 05:54 Labs: Laboratory Results - last 24 hr 12/27/24 10:30: WBC 19.4 H, RBC 5.28, Hgb 15.0, Hct 46.7, MCV 88.4, MCH 28.4, MCHC 32.1, RDW Std Deviation 42.3, RDW Coeff of Gray 13.0, Plt Count 165, MPV 13.0 H, Immature Gran % (Auto) 0.500, Neut % (Auto) 71.5 H, Lymph % (Auto) 16.2 L, [place] % (Auto) 11.3 H, Eos % (Auto) 0.1, Baso % (Auto) 0.4, Absolute Neuts (auto) 13.9 H, Absolute Lymphs (auto) 3.14, Nucleated RBC % 0, Differential Comment SCANNED, Sodium 139, Potassium 3.8, Chloride 105, Carbon Dioxide 22.3, Anion Gap 12, BUN 11, Creatinine 0.97, Estim Creat Clear Calc 175.00, Est GFR (MDRD) Non-Af 109, BUN/Creatinine Ratio 11.2, Glucose 100 H, Calcium 9.3 12/27/24 11:07: Urine Color Yellow, Urine Clarity Clear, Urine pH 7.0, Ur Specific [place] 1.010, Urine Protein TNP, Urine Glucose (UA) Normal, Urine Ketones 15 H, Urine Occult Blood Negative, Urine Nitrite Negative, Urine Bilirubin Negative, Urine Urobilinogen 4 H, Ur Leukocyte Esterase 25 H, Urine RBC 0-5 SEEN, Urine WBC 5-10 SEEN, Ur Squamous Epith Cells 0-5 SEEN, Urine Bacteria 0 SEEN, Hyaline Casts 0-5 SEEN, Fine Granular Casts 0-5 SEEN, Coarse Granular Casts 0-5 SEEN, Urine Mucus 0 SEEN, U Random Total Protein 100.0 H 12/28/24 05:54: WBC 18.1 H, RBC 4.94, Hgb 14.2, Hct 44.4, MCV 89.9, MCH 28.7, MCHC 32.0, RDW Std Deviation 43.2, RDW Coeff of Gray 13.2, Plt Count 160, MPV 13.5 H, Immature Gran % (Auto) 1.900 H, Neut % (Auto) 71.4 H, Lymph % (Auto) 14.3 L, [place] % (Auto) 11.8 H, Eos % (Auto) 0.3, Baso % (Auto) 0.3, Absolute Neuts (auto) 12.9 H, Absolute Lymphs (auto) 2.58, Nucleated RBC % 0, Sodium 141, Potassium 4.4, Chloride 105, Carbon Dioxide 25.6, Anion Gap 10, BUN 11, Creatinine 0.92, Estim Creat Clear Calc 184.20, Est GFR (MDRD) Non-Af 117, BUN/Creatinine Ratio 11.9, Glucose 97, Calcium 9.1, Phosphorus 3.3, Magnesium 2.0 Radiography Diagnostic Testing: Radiology Impression Abdomen/Pelvis CT 12/27/24 10:52 IMPRESSION: Sigmoid diverticulitis. Focal contained perforation along the anti mesenteric side of the sigmoid colon. Reading Location: [facility]1 Physical Exam GI GI Narrative: Abdomen- soft, very minimal amount of tenderness to palpation of the left lower quadrant Assessment & Plan Assessment/Plan (1) Bowel perforation: (2) Leukocytosis: (3) Acute diverticulitis: PLAN: Plan I am following this patient in conjunction with Dr. De Anda. He has independently evaluated this patient. Labs reviewed. WBC is slightly decreasing Increase diet to clear liquids Continue IV antibiotics No surgical intervention planned at this time We will continue to monitor this patient Charges/Coding Visit Charges Inpatient E&M: 37593 Subs Hosp L2
--- NOTE | 2024-12-28 13:25 | CASEMGMT ---
ROSA KOHLER Assessment: Face to Face with pt for initial transition planning/care coordination assessment. ROSA KOHLER introduced self and role at [facility], pt voices understanding and consents to assessment. Pt is A&O x4 and answers all questions appropriately at this time. Pt sitting up in chair in no distress. Care providers, pharmacy, and demographics verified/updated. Admitting Dx: perforated sigmoid diverticulitis Strata Score: 1 PCP:Yamile Specialists:Denies Preferred Pharmacy:[facility] Insurance: [place] Prescription Benefit: yes LNOK: Daylin Gómez, Living Arrangements: Pt lives with and 3 children in a mobile home with 3 steps to enter. Pt reports he is I in ADL/IADLs and denies concerns at home. Transportation: Pt drives self and denies concerns with transportation. DME:Denies HHC/SNF: Denies hx of Pt states no concerns with going home at time of dc. Pt states no further concerns/needs. CM to follow. Advised pt to ask CM if any further questions/concerns/needs arise, voices understanding. Pt Goal: Home Plan: Home Isaac LEE CM
[2024-12-28 14:16] VITALS: BP 124/75; PULSE 70; RESP 18; TEMP 36.4; O2SAT 100
[2024-12-28 23:11] VITALS: BP 134/79; PULSE 61; RESP 18; TEMP 36.4; O2SAT 98
[2024-12-29] MEDS: Piperacil/Tazobactam 3.375 GM in 0.9% Normal Saline (50mL MB+) 50 ML IV ×2 (05:10→14:16)
[2024-12-29 05:11] VITALS: BP 136/68; PULSE 69; RESP 16; TEMP 36.7; O2SAT 98
--- NOTE | 2024-12-29 07:24 | PCM.PN.SRG ---
Subjective Subjective julio clears denies abdominal pain. Labs currently pending Objective Data Objective Data Vital Signs: Vital Signs Temp Pulse Resp BP Pulse Ox O2 Del Method 98.1 F 69 16 136/68 H 98 Room Air 12/29/24 05:11 12/29/24 05:11 12/29/24 05:11 12/29/24 05:11 12/29/24 05:11 12/29/24 05:11 Oxygen Delivery Method Room Air Weight: 320 lb 15.889 oz Body Mass Index (BMI) 40.1 Intake & Output: Intake and Output for Last 24 Hours 12/27/24 12/28/24 12/29/24 23:59 23:59 23:59 Intake Total 1700.83 / 1750.83 2190 / 3040 1300 / 1300 Balance 1700.83 / 1750.83 2190 / 3040 1300 / 1300 Lab / Micro Data 12/29/24 06:40 12/29/24 06:40 Labs: Laboratory Results - last 24 hr 12/28/24 05:54: WBC 18.1 H, RBC 4.94, Hgb 14.2, Hct 44.4, MCV 89.9, MCH 28.7, MCHC 32.0, RDW Std Deviation 43.2, RDW Coeff of Gray 13.2, Plt Count 160, MPV 13.5 H, Immature Gran % (Auto) 1.900 H, Neut % (Auto) 71.4 H, Lymph % (Auto) 14.3 L, [place] % (Auto) 11.8 H, Eos % (Auto) 0.3, Baso % (Auto) 0.3, Absolute Neuts (auto) 12.9 H, Absolute Lymphs (auto) 2.58, Nucleated RBC % 0, Differential Comment COMMENT Physical Exam Const oriented x3 and no apparent distress Resp normal respiratory effort GI soft to palpation and non-tender Inspection: Negative for abdominal distention Assessment & Plan Assessment/Plan (1) Bowel perforation: (2) Leukocytosis: (3) Acute diverticulitis: PLAN: Plan Labs pending?addendum white blood count 14.4 improvement of left shift as well. Will DC home plan follow-up in 1 week. Increase diet to full liquids Continue IV antibiotics will change to p.o. on DC No surgical intervention planned at this time Mariia Dyer M.D. Pager: [phone] [facility] [address] [place] [address], [address] [place] [address] Office: [phone]
[2024-12-29 07:34] LABS: Absolute Lymphocyte Count 2.24 X10^3/uL (0.83-4.51); Absolute Neutrophil Count 10.3 X10^3/uL (2.0-7.7); Basophil# 0.07 X10^3/uL; Basophil% 0.5 % (0-1); Eosinophil# 0.11 X10^3/uL; Eosinophils% 0.8 % (0-5); Hematocrit 43.7 % (40-54); Lymphocyte # 2.24 X10^3/ul (0.83-4.51); Lymphocyte % 15.6 % (19-41); Mean Corpuscular Hgb 28.7 pg (27.0-32.0); Mean Corpuscular Volume 89.7 fL (80-94); Mean Platelet Vol. 13.3 fl (6.2-12.0); Monocyte% 11.1 % (0-10); NRBC Flagged by Analyzer 0 % (0-5); Neutrophil # 10.31 X10^3/uL (2.7-7.7); Neutrophil % 71.7 % (47-70); POSITIVE DIFFERENTIAL YES; Platelet Count 171 K/mm3 (150-450); RBC Distribution Width CV 13.2 % (11.6-14.6); RBC Distribution Width SD 43.2 fl (35.1-43.9); Red Blood Count 4.87 M/mm3 (4.6-6.2); White Blood Count 14.4 K/mm3 (4.4-11.0)
[2024-12-29 07:40] LABS: Differential Indicated SCAN CRITERIA MET
[2024-12-29 07:58] LABS: Anion Gap 14 (5-15); BUN 10 mg/dL (4-19); BUN/Creat Ratio 9.4 RATIO (10-20); Carbon Dioxide 23.1 mmol/L (21.0-32.0); Chloride 105 mmol/L (98-108); Creatinine, Serum 1.03 mg/dL (0.70-1.20); EST Glomerular Filtration Rate 101 (>60); Estimated Creatinine Clearance 164.53 ml/min (50-250); Glucose 95 mg/dL (70-99); Potassium 4.4 mmol/L (3.3-5.1); Sodium Level 142 mmol/L (133-145)
[2024-12-29 08:59] VITALS: BP 153/64; PULSE 74; RESP 18; TEMP 36.8; O2SAT 100
--- NOTE | 2024-12-29 13:45 | DCINST_ITS ---
Discharge Instructions Diet Discharge Diet: - (Transitional/low fiber for 3 to 4 weeks) Activity Discharge Activity: Return to Normal Activity Dressing / Incision Call your doctor if your incision/area has: Increased Pain/ Swelling Call your doctor if you observe: Fever of 101 or Higher Follow Up Care Please Follow Up With: Deric De Anda MD When: Call [phone] for follow-up in 1 week. After 4:30 PM or weekend call [phone] with any concerns Test Results: Test results from this visit will be discussed in further detail at your follow- up appointment, if applicable. Discharge Plan Admission Admit Date/Time: 12/27/24 12:28 Attending Provider: Deric De Anda Primary Care Provider: Aria Ovalle Instructions Forms: Work / School Excuse Discharge Orders/Prescriptions Prescriptions: New amoxicillin-pot clavulanate 875-125 mg tablet 1 tab PO Q12H Qty: 20 0RF Referrals / Follow Up: Aria Ovalle MD [Primary Care Provider] - Disposition Disposition (needs filled in before D/C Order can be placed): Home, Self Care
--- NOTE | 2024-12-29 13:47 | PCM.DC.SUM ---
Providers Date of Admission: 12/27/24 Date of Discharge: 12/29/24 Primary Care Physician: Dr. Aria Ovalle MD Reason For Visit: PERFORATED SIGMOID DIVERTICULITIS Diagnosis Discharge Diagnosis (1) Bowel perforation: Status: Acute Code(s): K63.1 - Perforation of intestine (nontraumatic) (2) Leukocytosis: Status: Acute Code(s): D72.829 - Elevated white blood cell count, unspecified (3) Acute diverticulitis: Status: Acute Code(s): K57.92 - Diverticulitis of intestine, part unspecified, without perforation or abscess without bleeding Plan Labs pending Increase diet to full liquids Continue IV antibiotics will change to p.o. on DC No surgical intervention planned at this time Mariia Dyer M.D. Pager: [phone] [facility] [address] [place] [address], [address] [place] [address] Office: [phone] Medications at Discharge Home Medications amoxicillin 875 mg-potassium clavulanate 125 mg tablet 1 tab PO Q12H #20 tabs 12/29/24 Hospital Course Operations None Procedures None Summary of Care Provided Minutes Spent on Discharge: 15 Hospital Course: Patient was admitted after presenting to the ER due to lower abdominal pain. CT abdomen pelvis showed perforated diverticulitis. Patient initially had a white blood count 19 did come down to 18 yesterday and down to 14.4 today. Patient states that yesterday his pain did resolve. Patient has tolerated full liquids without any issues. Plan to have patient DC home with Augmentin and follow-up in [address] De Anda. Weight / BMI Weight Weight: 320 lb 15.889 oz Body Mass Index (BMI) 40.1 ABG / Lab / Microbiology Data 12/29/24 06:40 12/29/24 06:40 Laboratory: Laboratory Results - last 24 hr 12/29/24 06:40: WBC 14.4 H, RBC 4.87, Hgb 14.0, Hct 43.7, MCV 89.7, MCH 28.7, MCHC 32.0, RDW Std Deviation 43.2, RDW Coeff of Gray 13.2, Plt Count 171, MPV 13.3 H, Immature Gran % (Auto) 0.300, Neut % (Auto) 71.7 H, Lymph % (Auto) 15.6 L, Petroleum % (Auto) 11.1 H, Eos % (Auto) 0.8, Baso % (Auto) 0.5, Absolute Neuts (auto) 10.3 H, Absolute Lymphs (auto) 2.24, Nucleated RBC % 0, Sodium 142, Potassium 4.4, Chloride 105, Carbon Dioxide 23.1, Anion Gap 14, BUN 10, Creatinine 1.03, Estim Creat Clear Calc 164.53, Est GFR (MDRD) Non-Af 101, BUN/Creatinine Ratio 9.4 L, Glucose 95, Calcium 9.0 D/C Instructions Discharge Diet: - (Transitional/low fiber for 3 to 4 weeks) Call your doctor if your incision/area has: Increased Pain/ Swelling Call your doctor if you observe: Fever of 101 or Higher DC O2, CPAP, BIPAP Needs Home O2 Discharge instructions: No Please Follow Up With: Deric De Anda MD When: Call [phone] for follow-up in 1 week. After 4:30 PM or weekend call [phone] with any concerns Meaningful Use Info Meaningful Use Meaningful Use Diagnoses (Choose all that apply): None applicable Ischemic Stroke Statin Dosing Therapy Reference: STATIN DOSE THERAPY REFERENCE: * Patients > 75 years receive moderate or high dose statin therapy. * Patients 75 years or YOUNGER should receive HIGH intensity statin dose unless contraindicated. You will be required to document reason for non-treatment if statin daily dose does not meet guidelines. HIGH DOSE STATIN THERAPY DAILY Atorvastatin > than or = to 40 mg Rosuvastatin > than or = to 20 mg Amlodipine + Atorvastatin > than or = to 2.5/40 mg Ezetimibe + Simvastatin 10/80 mg Simvastatin 80mg Discharge Plan Admission Admit Date/Time: 12/27/24 12:28 Attending Provider: Deric De Anda Primary Care Provider: Aria Ovalle Instructions Forms: Work / School Excuse Discharge Orders/Prescriptions Prescriptions: New amoxicillin-pot clavulanate 875-125 mg tablet 1 tab PO Q12H Qty: 20 0RF Referrals / Follow Up: Aria Ovalle MD [Primary Care Provider] - Disposition Disposition (needs filled in before D/C Order can be placed): Home, Self Care Charges/Coding Visit Charges Inpatient E&M: 83878 Disch Hosp
[2024-12-29] MEDS: 0.9% Saline Lock 10 ML Syringe IV (14:16)
[2024-12-29 14:23] VITALS: BP 107/80; PULSE 63; RESP 16; TEMP 36.8; O2SAT 98
--- NOTE | 2024-12-29 14:53 | CASEMGMT ---
Patient has order for discharge. RN CM in to discuss needs at discharge. Patient denies needs or help at discharge. Patient had no further questions or concerns.
== END 2024-12-29 15:30 | disposition home or self-care (01) | DRG 392 ==
LOC: ED 11:48 → MS3 15:19
PROVIDERS: Physician Assistant; Admitting Provider Surgery; Emergency Provider Emergency Medicine; PCP Internal Medicine; Visit Provider Surgery
DX: K57.20 Diverticulitis of large intestine with perforation and abscess without bleeding (principal); Z68.41 Body mass index [BMI] 40.0-44.9, adult; D72.829 Elevated white blood cell count, unspecified; I10 Essential (primary) hypertension; E66.01 Morbid (severe) obesity due to excess calories
CPT/HCPCS: 36415; 74176; 80048; 81001; 83735; 84100; 84156; 85025; 99284; A4216; J2405

== ENCOUNTER 2025-01-02 11:33 | Inpatient (IN) | payer BC, SELFPAY ==
[2025-01-02] VITALS (8 sets, daily range): BP systolic 107–151; BP diastolic 53–69; PULSE 61–87; RESP 16–18; TEMP 36.4–37.2; O2SAT 96–100; BMI 40.1; BMI 24526.8
[2025-01-02 12:52] LABS: Absolute Lymphocyte Count 2.69 X10^3/uL (0.83-4.51); Absolute Neutrophil Count 10.1 X10^3/uL (2.0-7.7); Basophil# 0.09 X10^3/uL; Basophil% 0.6 % (0-1); Eosinophil# 0.09 X10^3/uL; Eosinophils% 0.6 % (0-5); Hematocrit 47.8 % (40-54); Lymphocyte # 2.69 X10^3/ul (0.83-4.51); Lymphocyte % 18.9 % (19-41); Mean Corp Hgb Conc 31.4 g/dL (32-36); Mean Corpuscular Hgb 28.2 pg (27.0-32.0); Mean Corpuscular Volume 89.8 fL (80-94); Mean Platelet Vol. 12.8 fl (6.2-12.0); Monocyte# 1.21 X10^3/uL; Monocyte% 8.5 % (0-10); NRBC Flagged by Analyzer 0 % (0-5); Neutrophil # 10.12 X10^3/uL (2.7-7.7); Platelet Count 196 K/mm3 (150-450); RBC Distribution Width CV 12.7 % (11.6-14.6); RBC Distribution Width SD 41.9 fl (35.1-43.9); Red Blood Count 5.32 M/mm3 (4.6-6.2); White Blood Count 14.3 K/mm3 (4.4-11.0)
[2025-01-02 13:25] LABS: Lipase 21 U/L (13-75)
[2025-01-02 13:35] LABS: ALB/GLOB Ratio 0.9 RATIO (0.9-2.4); AST(SGOT) 31 U/L (<=37); Alanine Aminotransfer ALT/SGPT 15 U/L (<=46); Albumin, Serum 3.9 g/dL (3.5-5.0); Alkaline Phosphatase 54 U/L (40-129); Anion Gap 12 (5-15); BUN 11 mg/dL (4-19); BUN/Creat Ratio 10.6 RATIO (10-20); Calcium,Total 9.4 mg/dL (7.6-11.0); Carbon Dioxide 23.3 mmol/L (21.0-32.0); Chloride 101 mmol/L (98-108); EST Glomerular Filtration Rate 105 (>60); Estimated Creatinine Clearance 169.46 ml/min (50-250); Globulin 4.2 g/dL (2.2-4.2); Glucose 83 mg/dL (70-99); Potassium 4.9 mmol/L (3.3-5.1); Protein, Total 8.2 g/dL (5.9-8.4); Sodium Level 136 mmol/L (133-145); Total Bilirubin 0.68 mg/dL (0.00-1.30)
--- NOTE | 2025-01-02 13:44 | CT_ITS ---
PROCEDURE: ABDOMEN/PELVIS W IV CONT ONLY (procedure code [id number]), 01/02/2025 REASON FOR EXAM: DIVERTICULITIS TECHNIQUE: CT abdomen and pelvis was performed with IV contrast. Multiplanar reformats were generated. CONTRAST: Isovue-300 VOLUME: 95mL RADIATION DOSE SUMMARY: CTDlvol: 13.30+ 24.17 mGy DLP: 1460.31 mGycm One or more dose reduction techniques were used (e.g., Automated exposure control, adjustment of the mA and/or kV according to patient size, use of iterative reconstruction technique). COMPARISON: 12/27/2024 FINDINGS: Lung bases: Unremarkable. Liver: Unremarkable. Spleen: Mild splenomegaly, 16.1 cm. Gallbladder: Unremarkable. Pancreas: Unremarkable. Adrenals: Unremarkable. Kidneys: Unremarkable. Bowel: Diverticulosis with probably slightly increased wall thickening along the sigmoid where there is also an increasing quantity of non-loculated extraluminal fluid/gas measuring roughly 2.7 x 1.4 cm superiorly and roughly 3.2 x 2.9 cm inferiorly again compatible with perforation and associated phlegmon. Increasing adjacent stranding and trace presumably reactive free fluid. No current obstruction normal caliber appendix. Lymph nodes: Borderline mild periportal lymphadenopathy, with a node measuring 15 mm short axis, similar. Vasculature: Unremarkable. Peritoneum: As above. Bladder: Unremarkable. Reproductive Organs: Unremarkable. Body Wall: Tiny fat containing umbilical hernia.. Bones: Multilevel spondylosis. Variable multilevel spinal canal stenoses up to severe along the lumbar spine, suboptimally delineated by CT. Old LEFT rib fractures. CT/Abdomen/Pelvis W IV Cont ONLY IMPRESSION: 1. Worsening acute perforated sigmoid diverticulitis. There is increasing megan cent ill-defined phlegmon and free air, but no walled-off collection at present. 2. Given sigmoid wall thickening, recommend clinical follow-up to ensure resolu tion after appropriate therapy and no underlying colonic lesion. 3. Borderline mild periportal lymphadenopathy, nonspecific and potentially reac tive in the absence of known malignancy. 4. Mild splenomegaly. 5. Additional description as above. Reading Location: [id number]
[2025-01-02] MEDS: Piperacil/Tazobactam 4.5 GM in 0.9% Normal Saline (100mL MB+) 100 ML IV (14:52)
--- NOTE | 2025-01-02 15:33 | EX.ED.DYSGE1 ---
HPI History of Present Illness Chief Complaint: Abd Pain Informant: patient Narrative Narrative: 29-year-old male presenting to the emergency room had a concern for diverticulitis. Patient was admitted the to the for sigmoid diverticulitis. This was his first incident of diverticulitis. He was discharged home on Augmentin. He states that for a day he seemed to be getting better but is seems to be getting worse. He has pain with movement and with wearing a belt. He denies any fevers. Patient notes that he was having constipation but has been able to pass some small stool and over the past couple days has had discomfort with bowel movements [facility] Medical History Migraines Sciatica Hypertension Frequent headaches Bone fracture Back problem Home Medications ?Medication ?Instructions ?Recorded ?Last Taken ?Type amoxicillin 875 mg-potassium 1 tab PO BID 01/02/25 01/02/25 History clavulanate 125 mg tablet Allergy/AdvReac Type Severity Reaction Status Date / Time No Known Allergies Allergy Verified 01/02/25 11:33 Family History Other Cancer Diabetes High cholesterol Hypertension Surgical History History of removal of cyst History of facial surgery Social History Smoking Status: Never smoker alcohol intake: current alcohol intake frequency: holidays/special occasions only Alcohol type: beer substance use type: does not use what type of physical activity do you participate in: none ROS ROS ED Constitutional Constitutional ED: Denies chills, fever(s) or weight loss Eyes Eyes: Denies change in vision or diplopia ENT ENT ED: Denies ear pain, rhinorrhea or sore throat Cardiovascular Cardiovascular: Denies chest pain, orthopnea, palpitations or racing heartbeat Respiratory/Chest Respiratory/Chest: Denies cough, dyspnea or orthopnea Gastrointestinal Gastrointestinal: Reports abdominal pain, constipation and nausea; Denies diarrhea or vomiting Genitourinary Genitourinary ED: Denies dysuria, hematuria or urinary frequency Musculoskeletal Musculoskeletal: Reports back pain; Denies arthralgias or myalgias Integumentary Denies abscess or rash Neurologic Neurologic: Denies headache(s) or weakness Psychiatric Psychiatric: Denies anxiety, depression, suicidal ideation or suicidal thoughts Endocrine Endocrinology: Denies polydipsia, polyphagia or polyuria Allergic/Immunologic Allergic/Immunologic ED: Denies mouth swelling, tongue swelling or urticaria EXAM Physical Exam Const Vital Signs: 01/02/25 11:33 01/02/25 12:48 01/02/25 14:30 Temperature 98.9 F 98.9 F Temperature Source Oral Temporal Pulse Rate 80 80 87 Respiratory Rate 18 18 18 Blood Pressure 124/69 H 124/69 H Blood Pressure Mean 87 87 Pulse Ox 96 96 100 Oxygen Delivery Method Room Air Room Air 01/02/25 16:19 01/02/25 16:20 Temperature 99 F Temperature Source Temporal Pulse Rate 69 69 Respiratory Rate 18 18 Blood Pressure 107/53 L 107/53 L Blood Pressure Mean 71 71 Pulse Ox 100 100 Oxygen Delivery Method Room Air Positive well nourished and well developed General Appearance ED: well developed and NAD HEENT Reports normocephalic, head/scalp atraumatic and moist mucous membranes Eyes PERRL and EOMs intact bilaterally Neck no lymphadenopathy, supple and no JVD Resp normal respiratory effort and clear to auscultation bilaterally Cardio regular rate, regular rhythm and no murmurs GI Inspection: Negative for abdominal distention Auscultation: normoactive bowel sounds Palpation: soft, tender LLQ and suprapubic, guarding LLQ and rebound tenderness present Back/Spine no CVA tenderness and normal ROM Extremity normal to inspection General Extremety ED: Negative for edema General Extremity: Negative for edema Neuro oriented x3 and CN's II-XII intact bilaterally Sensorium / Orientation: alert Motor Exam: strength 5/5 throughout Psych mental status grossly normal Mood & Affect: Negative for depressed or tearful Skin no rashes or lesions noted and no wounds MDM MDM MDM Narrative Medical decision making narrative: Differential diagnosis includes diverticulitis diverticular abscess perforation lower GI bleed volvulus constipation UTI Patient's white count is 14.3 hemoglobin of 15 platelet count of 196 BMP is within normal limits normal liver enzymes normal lipase. CT of the abdomen pelvis with IV contrast was obtained which is concerning for worsening sigmoid diverticulitis. There is an area adjacent to the sigmoid colon that is concerning for perforation and phlegmon. Patient received Zosyn. I will speak with on-call surgery. Plan is admission. History & Record Review Discussion w/independent historian: Patient Additional record(s) reviewed:: Prior inpatient record, Prior ED visit and Prior labs Lab Data Attestation: I reviewed the patient's lab results. Labs: Laboratory Results - last 24 hr 01/02/25 12:42 WBC 14.3 H RBC 5.32 Hgb 15.0 Hct 47.8 MCV 89.8 MCH 28.2 MCHC 31.4 L RDW Std Deviation 41.9 RDW Coeff of Gray 12.7 Plt Count 196 MPV 12.8 H Immature Gran % (Auto) 0.400 Neut % (Auto) 71.0 H Lymph % (Auto) 18.9 L [place] % (Auto) 8.5 Eos % (Auto) 0.6 Baso % (Auto) 0.6 Absolute Neuts (auto) 10.1 H Absolute Lymphs (auto) 2.69 Nucleated RBC % 0 Sodium 136 Potassium 4.9 Chloride 101 Carbon Dioxide 23.3 Anion Gap 12 BUN 11 Creatinine 1.00 Estim Creat Clear Calc 169.46 Est GFR (MDRD) Non-Af 105 BUN/Creatinine Ratio 10.6 Glucose 83 Calcium 9.4 Total Bilirubin 0.68 AST 31 ALT 15 Alkaline Phosphatase 54 Total Protein 8.2 Albumin 3.9 Globulin 4.2 Albumin/Globulin Ratio 0.9 Lipase 21 Radiography Diagnostic Testing: Clinical Impression(s) from Imaging Studies Abdomen/Pelvis CT 01/02/25 13:44 IMPRESSION: 1. Worsening acute perforated sigmoid diverticulitis. There is increasing adjacent ill-defined phlegmon and free air, but no walled-off collection at present. 2. Given sigmoid wall thickening, recommend clinical follow-up to ensure resolution after appropriate therapy and no underlying colonic lesion. 3. Borderline mild periportal lymphadenopathy, nonspecific and potentially reactive in the absence of known malignancy. 4. Mild splenomegaly. 5. Additional description as above. Reading Location: [id number] Management Discussion w/another healthcare provider: Checker Cashier (Dr Cain) Discharge Plan Triage Chief Complaint: Abd Pain ED Provider: Uday Carlton Dx/Rx/DC Orders Clinical Impression: Perforation of sigmoid colon due to diverticulitis, Abdominal pain, acute Prescriptions: No Action amoxicillin-pot clavulanate 875-125 mg tablet 1 tab PO BID Primary Care Provider: Aria Ovalle Referrals: Aria Ovalle MD [Primary Care Provider] - Print Language: Citizen Of [place]
--- NOTE | 2025-01-02 16:52 | PCM.HP.STD ---
HPI - General HPI Narrative GALINA RAMÍREZ, is a 29 M who presents with cramping and left lower quadrant pain. The patient reports that he was recently discharged after admission for diverticulitis with perforation. It was treated conservatively and he was advanced on his diet and discharged home. He says he was doing fine for the first 2 days he was home but then he started having cramping before every bowel movement and pain. He rates the pain is minimal unless you push very deeply on it at rest it is mostly tender before he has a bowel movement. [facility] Medical History Migraines Sciatica Hypertension Frequent headaches Bone fracture Back problem Home Medications ?Medication ?Instructions ?Recorded ?Last Taken ?Type amoxicillin 875 mg-potassium 1 tab PO BID 01/02/25 01/02/25 History clavulanate 125 mg tablet Allergy/AdvReac Type Severity Reaction Status Date / Time No Known Allergies Allergy Verified 01/02/25 11:33 Family History Other Cancer Diabetes High cholesterol Hypertension Surgical History History of removal of cyst History of facial surgery Social History Smoking Status: Never smoker alcohol intake: current alcohol intake frequency: holidays/special occasions only Alcohol type: beer substance use type: does not use what type of physical activity do you participate in: none ROS Constitutional Constitutional: Denies anorexia, chills, fatigue or fever(s) Eyes Eyes: Denies blurry vision ENT HEENT: Denies abnormal hearing Cardiovascular Cardiovascular: Denies chest pain Respiratory/Chest Respiratory/Chest: Denies cough or dyspnea Gastrointestinal Gastrointestinal: Reports abdominal pain; Denies constipation, diarrhea, dysphagia, nausea or vomiting Genitourinary Genitourinary: Denies change in urinary stream Integumentary Integumentary: Denies jaundice or new lesions Neurologic Neurologic: Denies abnormal gait Psychiatric Psychiatric: Denies anxiety Vital Signs Vital Signs Vital Signs: 01/02/25 11:33 01/02/25 12:48 01/02/25 14:30 Temperature 98.9 F 98.9 F Temperature Source Oral Temporal Pulse Rate 80 80 87 Respiratory Rate 18 18 18 Blood Pressure 124/69 H 124/69 H Blood Pressure Mean 87 87 Pulse Ox 96 96 100 Oxygen Delivery Method Room Air Room Air 01/02/25 16:19 01/02/25 16:20 Temperature 99 F Temperature Source Temporal Pulse Rate 69 69 Respiratory Rate 18 18 Blood Pressure 107/53 L 107/53 L Blood Pressure Mean 71 71 Pulse Ox 100 100 Oxygen Delivery Method Room Air Weight Weight: 321 lb Body Mass Index (BMI) 40.1 Physical Exam Const oriented x3 and no apparent distress Resp normal respiratory effort Cardio regular rate and regular rhythm GI soft to palpation Palpation: tender LLQ Extremity normal to inspection Results Lab / Micro Data 01/02/25 12:42 01/02/25 12:42 Labs: Laboratory Results - last 24 hr 01/02/25 12:42: WBC 14.3 H, RBC 5.32, Hgb 15.0, Hct 47.8, MCV 89.8, MCH 28.2, MCHC 31.4 L, RDW Std Deviation 41.9, RDW Coeff of Gray 12.7, Plt Count 196, MPV 12.8 H, Immature Gran % (Auto) 0.400, Neut % (Auto) 71.0 H, Lymph % (Auto) 18.9 L, [place] % (Auto) 8.5, Eos % (Auto) 0.6, Baso % (Auto) 0.6, Absolute Neuts (auto) 10.1 H, Absolute Lymphs (auto) 2.69, Nucleated RBC % 0, Sodium 136, Potassium 4.9, Chloride 101, Carbon Dioxide 23.3, Anion Gap 12, BUN 11, Creatinine 1.00, Estim Creat Clear Calc 169.46, Est GFR (MDRD) Non-Af 105, BUN/Creatinine Ratio 10.6, Glucose 83, Calcium 9.4, Total Bilirubin 0.68, AST 31, ALT 15, Alkaline Phosphatase 54, Total Protein 8.2, Albumin 3.9, Globulin 4.2, Albumin/Globulin Ratio 0.9, Lipase 21 Imaging Radiology Impression Abdomen/Pelvis CT 01/02/25 13:44 IMPRESSION: 1. Worsening acute perforated sigmoid diverticulitis. There is increasing adjacent ill-defined phlegmon and free air, but no walled-off collection at present. 2. Given sigmoid wall thickening, recommend clinical follow-up to ensure resolution after appropriate therapy and no underlying colonic lesion. 3. Borderline mild periportal lymphadenopathy, nonspecific and potentially reactive in the absence of known malignancy. 4. Mild splenomegaly. 5. Additional description as above. Reading Location: [id number] Assessment & Plan Assessment/Plan (1) Perforation of sigmoid colon due to diverticulitis: PLAN: The patient was recently admitted with this diverticulitis with perforation and it was treated conservatively. The patient was feeling well and his white count responded to antibiotics and so he was discharged home on oral antibiotics. This may have been too early to start a regular diet as it seems like most of the pain is from his stool passing through the colon. I will admit him back to our service and start him on clear liquids and IV antibiotics. Dr. De Anda was notified and will see him when he comes back on . Plan for conservative treatment and repeat CT in 48 hours. Chema Morris MD Pager: [facility] [address] [place] [address], [address] [place] [address] Office:
[2025-01-02] MEDS: 0.9% Normal Saline (1000mL) 1,000 ML 60 ML IV (18:37)
[2025-01-02] MEDS: 0.9% Saline Lock 10 ML Syringe IV (18:38)
[2025-01-02] MEDS: Piperacil/Tazobactam 3.375 GM in 0.9% Normal Saline (50mL MB+) 50 ML IV (22:17)
[2025-01-02] MEDS: 0.9% Normal Saline (100mL Bag) 100 ML 15 ML IV (22:19)
[2025-01-03 02:15] VITALS: BP 126/53; PULSE 65; RESP 16; TEMP 36.6; O2SAT 96
[2025-01-03] MEDS: Piperacil/Tazobactam 3.375 GM in 0.9% Normal Saline (50mL MB+) 50 ML IV ×3 (05:25→21:04)
--- NOTE | 2025-01-03 07:38 | PCM.PN.SRG ---
Subjective Subjective Patient evaluated sitting comfortably in the chair. He notes slight tenderness in the left lower quadrant with bowel movements and urination. Patient denies any nausea, vomiting. He is feeling improved since admission. He is tolerating clear liquids. He is passing flatus. Objective Data Objective Data Vital Signs: Vital Signs Temp Pulse Resp BP Pulse Ox O2 Del Method 97.9 F 65 16 126/53 H 96 Room Air 01/03/25 02:15 01/03/25 02:15 01/03/25 02:15 01/03/25 02:15 01/03/25 02:15 01/03/25 02:15 Oxygen Delivery Method Room Air Weight: 314 lb Body Mass Index (BMI) 07435.8 Intake & Output: Intake and Output for Last 24 Hours 01/01/25 01/02/25 01/03/25 23:59 23:59 23:59 Intake Total 700 / 700 600 / 600 Balance 700 / 700 600 / 600 Lab / Micro Data 01/02/25 12:42 01/02/25 12:42 Labs: Laboratory Results - last 24 hr 01/02/25 12:42: WBC 14.3 H, RBC 5.32, Hgb 15.0, Hct 47.8, MCV 89.8, MCH 28.2, MCHC 31.4 L, RDW Std Deviation 41.9, RDW Coeff of Gray 12.7, Plt Count 196, MPV 12.8 H, Immature Gran % (Auto) 0.400, Neut % (Auto) 71.0 H, Lymph % (Auto) 18.9 L, [place] % (Auto) 8.5, Eos % (Auto) 0.6, Baso % (Auto) 0.6, Absolute Neuts (auto) 10.1 H, Absolute Lymphs (auto) 2.69, Nucleated RBC % 0, Sodium 136, Potassium 4.9, Chloride 101, Carbon Dioxide 23.3, Anion Gap 12, BUN 11, Creatinine 1.00, Estim Creat Clear Calc 169.46, Est GFR (MDRD) Non-Af 105, BUN/Creatinine Ratio 10.6, Glucose 83, Calcium 9.4, Total Bilirubin 0.68, AST 31, ALT 15, Alkaline Phosphatase 54, Total Protein 8.2, Albumin 3.9, Globulin 4.2, Albumin/Globulin Ratio 0.9, Lipase 21 Radiography Diagnostic Testing: Radiology Impression Abdomen/Pelvis CT 01/02/25 13:44 IMPRESSION: 1. Worsening acute perforated sigmoid diverticulitis. There is increasing adjacent ill-defined phlegmon and free air, but no walled-off collection at present. 2. Given sigmoid wall thickening, recommend clinical follow-up to ensure resolution after appropriate therapy and no underlying colonic lesion. 3. Borderline mild periportal lymphadenopathy, nonspecific and potentially reactive in the absence of known malignancy. 4. Mild splenomegaly. 5. Additional description as above. Reading Location: [facility] Physical Exam GI GI Narrative: Abdomen- soft, non-tender to palpation. Assessment & Plan Assessment/Plan (1) Abdominal pain, acute: (2) Perforation of sigmoid colon due to diverticulitis: PLAN: Plan I am seeing this patient in conjunction with Dr. Morris. He has independently evaluated this patient. Labs are pending Continue IV antibiotics Continue clear liquid diet. Will add Ensure clear protein supplementation Will plan to repeat CT scan of the ab/pel tomorrow with contrast We will continue to monitor this patient Charges/Coding Visit Charges Inpatient E&M: 49836 Subs Hosp L2
[2025-01-03 07:50] LABS: Absolute Lymphocyte Count 2.34 X10^3/uL (0.83-4.51); Absolute Neutrophil Count 7.4 X10^3/uL (2.0-7.7); Basophil# 0.05 X10^3/uL; Basophil% 0.5 % (0-1); Eosinophil# 0.12 X10^3/uL; Eosinophils% 1.1 % (0-5); Hematocrit 44.6 % (40-54); Hemoglobin 14.3 g/dL (13.0-16.5); Lymphocyte # 2.34 X10^3/ul (0.83-4.51); Lymphocyte % 21.2 % (19-41); Mean Corp Hgb Conc 32.1 g/dL (32-36); Mean Corpuscular Hgb 28.7 pg (27.0-32.0); Mean Corpuscular Volume 89.6 fL (80-94); Mean Platelet Vol. 12.4 fl (6.2-12.0); Monocyte# 1.13 X10^3/uL; Monocyte% 10.2 % (0-10); NRBC Flagged by Analyzer 0 % (0-5); Neutrophil # 7.35 X10^3/uL (2.7-7.7); Neutrophil % 66.6 % (47-70); Platelet Count 214 K/mm3 (150-450); RBC Distribution Width CV 12.6 % (11.6-14.6); RBC Distribution Width SD 41.7 fl (35.1-43.9); Red Blood Count 4.98 M/mm3 (4.6-6.2)
[2025-01-03 08:12] LABS: Anion Gap 10 (5-15); BUN 11 mg/dL (4-19); BUN/Creat Ratio 10.5 RATIO (10-20); Calcium,Total 9.5 mg/dL (7.6-11.0); Carbon Dioxide 27.4 mmol/L (21.0-32.0); Chloride 104 mmol/L (98-108); Creatinine, Serum 1.03 mg/dL (0.70-1.20); EST Glomerular Filtration Rate 101 (>60); Estimated Creatinine Clearance 131.35 ml/min (50-250); Glucose 96 mg/dL (70-99); Potassium 4.7 mmol/L (3.3-5.1); Sodium Level 142 mmol/L (133-145)
[2025-01-03 08:52] VITALS: BP 138/69; PULSE 60; RESP 16; TEMP 36.8; O2SAT 98
[2025-01-03] MEDS: 0.9% Normal Saline (1000mL) 1,000 ML 60 ML IV (10:49)
--- NOTE | 2025-01-03 11:35 | CASEMGMT ---
Social Work- SW met with pt to conduct SDOH assessment. SW introduced self and role; pt agreeable to meet. Pt reports no concerns; SDOH triggered in error. Pt was pleasant and welcomed visit, initiating conversation as pt reports it has been 'too quiet' without family around. Pt reports no needs at this time. Pt appreciative of visit. SHIRAZ Wagner
[2025-01-03] MEDS: Ensure Clear 120 ML Liquid PO (14:23)
[2025-01-03 14:45] VITALS: BP 123/63; PULSE 66; RESP 16; TEMP 36.5; O2SAT 99
--- NOTE | 2025-01-03 15:40 | CASEMGMT ---
ROSA KOHLER Readmission Note Previous Admission: 12/27/24-12/29/24 Diagnosis: perforated sigmoid diverticulitis DC Disposition: Home Current Admission: Admitted 01/02/25 Current Diagnosis: diverticulitis with phlegmon Pt dc'd from previous hospital stay to home after tolerating full liquid diet. Pt was dc'd on oral antibiotics, pain resolved and was to f/u with Dr. De Anda and PCP. RN CM into pt room, pt sitting up in chair. Pt states that he feels he progressed his diet too quickly once home. Pt states now that he is back to liquids, his pain is managed. Pt did take his antibiotic and had an appt upcoming scheduled with Dr. De Anda but the appt was not until this Wednesday. Pt is indep at home, ambulating halls indep at hospital. Pt denies any homegoing needs. to see pt tomorrow. DC Plan: Home.
[2025-01-03 20:04] VITALS: BP 135/72; PULSE 54; RESP 16; TEMP 36.6; O2SAT 99
[2025-01-04 02:14] VITALS: BP 125/76; PULSE 58; RESP 16; TEMP 36.4; O2SAT 100
[2025-01-04] MEDS: 0.9% Normal Saline (1000mL) 1,000 ML 60 ML IV (03:51)
[2025-01-04] MEDS: Piperacil/Tazobactam 3.375 GM in 0.9% Normal Saline (50mL MB+) 50 ML IV (05:17)
[2025-01-04 05:53] LABS: Absolute Lymphocyte Count 2.38 X10^3/uL (0.83-4.51); Absolute Neutrophil Count 6.1 X10^3/uL (2.0-7.7); Basophil# 0.07 X10^3/uL; Basophil% 0.7 % (0-1); Eosinophil# 0.13 X10^3/uL; Eosinophils% 1.3 % (0-5); Hematocrit 45.3 % (40-54); Hemoglobin 14.4 g/dL (13.0-16.5); Lymphocyte # 2.38 X10^3/ul (0.83-4.51); Lymphocyte % 24.6 % (19-41); Mean Corp Hgb Conc 31.8 g/dL (32-36); Mean Corpuscular Hgb 28.2 pg (27.0-32.0); Mean Corpuscular Volume 88.8 fL (80-94); Mean Platelet Vol. 12.5 fl (6.2-12.0); Monocyte# 0.99 X10^3/uL; Monocyte% 10.2 % (0-10); NRBC Flagged by Analyzer 0 % (0-5); Neutrophil # 6.08 X10^3/uL (2.7-7.7); Neutrophil % 62.9 % (47-70); Platelet Count 224 K/mm3 (150-450); RBC Distribution Width CV 12.6 % (11.6-14.6); RBC Distribution Width SD 41.3 fl (35.1-43.9); White Blood Count 9.7 K/mm3 (4.4-11.0)
[2025-01-04 06:20] LABS: Anion Gap 8 (5-15); BUN 9 mg/dL (4-19); Calcium,Total 9.5 mg/dL (7.6-11.0); Chloride 106 mmol/L (98-108); Creatinine, Serum 1.14 mg/dL (0.70-1.20); EST Glomerular Filtration Rate 90 (>60); Estimated Creatinine Clearance 146.92 ml/min (50-250); Glucose 93 mg/dL (70-99); Potassium 4.5 mmol/L (3.3-5.1); Sodium Level 140 mmol/L (133-145)
[2025-01-04 08:14] VITALS: BP 118/66; PULSE 66; RESP 15; TEMP 37.1; O2SAT 97
--- NOTE | 2025-01-04 08:16 | PCM.PN.SRG ---
Subjective Subjective Patient seen and evaluated during AM rounds. Is found sitting out of bed in a chair. He states that he is doing quite well and that is presenting cramping is completely gone. He reports an appetite this morning. Objective Data Objective Data Vital Signs: Vital Signs Temp Pulse Resp BP Pulse Ox O2 Del Method 97.6 F L 58 L 16 125/76 H 100 Room Air 01/04/25 02:14 01/04/25 02:14 01/04/25 02:14 01/04/25 02:14 01/04/25 02:14 01/04/25 02:14 Oxygen Delivery Method Room Air Weight: 314 lb Body Mass Index (BMI) 33454.8 Intake & Output: Intake and Output for Last 24 Hours 01/02/25 01/03/25 01/04/25 23:59 23:59 23:59 Intake Total 700 / 700 2490.00 / 2490.00 1330 / 1330 Balance 700 / 700 2490.00 / 2490.00 1330 / 1330 Lab / Micro Data 01/04/25 05:08 01/04/25 05:08 Labs: Laboratory Results - last 24 hr 01/04/25 05:08: WBC 9.7, RBC 5.10, Hgb 14.4, Hct 45.3, MCV 88.8, MCH 28.2, MCHC 31.8 L, RDW Std Deviation 41.3, RDW Coeff of Gray 12.6, Plt Count 224, MPV 12.5 H, Immature Gran % (Auto) 0.300, Neut % (Auto) 62.9, Lymph % (Auto) 24.6, [place] % (Auto) 10.2 H, Eos % (Auto) 1.3, Baso % (Auto) 0.7, Absolute Neuts (auto) 6.1, Absolute Lymphs (auto) 2.38, Nucleated RBC % 0, Sodium 140, Potassium 4.5, Chloride 106, Carbon Dioxide 26.0, Anion Gap 8, BUN 9, Creatinine 1.14, Estim Creat Clear Calc 146.92, Est GFR (MDRD) Non-Af 90, BUN/Creatinine Ratio 8.0 L, Glucose 93, Calcium 9.5 Physical Exam Const oriented x3 and no apparent distress Resp normal respiratory effort GI GI Narrative: Obese, nondistended, soft, no tenderness despite light to deep palpation in all 4 quadrants with a focus in the left lower quadrant Assessment & Plan Assessment/Plan (1) Abdominal pain, acute: (2) Perforation of sigmoid colon due to diverticulitis: PLAN: Plan Patient is a 29-year-old male who is hospital day 3 for admission for perforated diverticulitis. He has remained afebrile throughout the course of his stay and today reports complete resolution of his presenting symptoms. Labs show resolution of both his leukocytosis and his left shift. Discussed possibility of simply resuming his diet based on his clinical improvements but given his need for readmission would like some objective evidence beyond his exam to say that his disease process is stable or improving. Therefore, opting for repeat CT imaging. Will have this completed today. ?Continue IV antibiotics until results of CT. Then may consider transition to Augmentin but would favor monitoring to see that white blood cell count remains within normal limits before discharge. ?Continue clear liquid diet with Ensure protein clear supplementation until results of CTA returned. If results are permissive we will consider advancing diet. Deric De Anda MD General Surgery Endocrine Surgery Pager: [facility] [address] [place] [address], [address] [place] [address] Office: [phone] Charges/Coding Visit Charges Inpatient E&M: 16124 [facility] Hosp L2
[2025-01-04] MEDS: Ensure Clear 120 ML Liquid PO ×2 (08:45→14:01)
--- NOTE | 2025-01-04 11:45 | CT_ITS ---
PROCEDURE: ABDOMEN/PELVIS WITH CONTRAST 01/04/2025 REASON FOR EXAM: PERFORATED SIGMOID DIVERTICULITIS TECHNIQUE: Abdomen and pelvis CT with intravenous contrast. Coronal and Sagittal reconstruction series were provided. PATIENT PREPARATION: Per protocol ORAL CONTRAST TYPE: Not reported CONTRAST: None One or more dose reduction techniques were used (e.g., Automated exposure control, adjustment of the mA and/or kV according to patient size, use of iterative reconstruction technique. RADIATION DOSE SUMMARY: DLP: 1451.82 mGycm COMPARISON: January 02, 2025 FINDINGS: Lung bases: Clear Liver: Unremarkable Gallbladder: Unremarkable Spleen: 15.8 cm Pancreas: Unremarkable Adrenals: Unremarkable Kidneys: Unremarkable Bladder: Unremarkable Reproductive Organs: Bowel: There is acute sigmoid diverticulitis with single wall thickness measuring 1.8 cm with a adjacent air and inflammation collection consistent with local perforation measuring 5.5 by 4.2 cm, coronal image 58/138, similar to the prior. Inflammatory stranding is noted extending into the lower right pericolic gutter and pelvis. There is no organized drainable collection. Oral contrast progressed to the rectum. The small bowel loops are not distended. Appendix: Unremarkable Lymph nodes: There is no pathologic adenopathy by size criteria. Vasculature: Unremarkable Bones: There is no acute bony abnormality. CT/Abdomen/Pelvis WITH Contrast IMPRESSION: Splenomegaly, unchanged. There is acute sigmoid diverticulitis with single wall thickness measuring 1.8 cm with a adjacent air and inflammation collection consistent with local perforation measuring 5.5 by 4.2 cm, coronal image 58/138 , similar to the prior. Inflammatory stranding is noted extending into the lower right pericolic gutter and pelvis. There is no o rganized drainable collection. Reading Location: [facility]
[2025-01-04 14:02] VITALS: BP 131/64; PULSE 59; RESP 16; TEMP 36.9; O2SAT 99
[2025-01-04] MEDS: Amox/Clavulanate 875 MG Tablet PO (17:16)
[2025-01-04 18:13] VITALS: BP 127/56; PULSE 64; RESP 17; TEMP 36.9; O2SAT 96
[2025-01-04] MEDS: 0.9% Saline Lock 10 ML Syringe IV (21:18)
[2025-01-04 21:22] VITALS: BP 130/55; PULSE 55; RESP 16; TEMP 36.4; O2SAT 98
[2025-01-05 02:41] VITALS: BP 132/65; PULSE 52; RESP 16; TEMP 36.4; O2SAT 98
[2025-01-05 06:10] LABS: Absolute Neutrophil Count 5.1 X10^3/uL (2.0-7.7); Basophil# 0.07 X10^3/uL; Basophil% 0.8 % (0-1); Eosinophil# 0.14 X10^3/uL; Eosinophils% 1.5 % (0-5); Hemoglobin 14.1 g/dL (13.0-16.5); Lymphocyte % 30.2 % (19-41); Mean Corpuscular Hgb 28.4 pg (27.0-32.0); Mean Corpuscular Volume 88.7 fL (80-94); Mean Platelet Vol. 12.5 fl (6.2-12.0); Monocyte# 1.08 X10^3/uL; Monocyte% 11.7 % (0-10); NRBC Flagged by Analyzer 0 % (0-5); Neutrophil # 5.14 X10^3/uL (2.7-7.7); Neutrophil % 55.5 % (47-70); Platelet Count 233 K/mm3 (150-450); RBC Distribution Width CV 12.5 % (11.6-14.6); RBC Distribution Width SD 40.8 fl (35.1-43.9); Red Blood Count 4.96 M/mm3 (4.6-6.2); White Blood Count 9.3 K/mm3 (4.4-11.0)
[2025-01-05 06:30] LABS: Anion Gap 9 (5-15); BUN 8 mg/dL (4-19); BUN/Creat Ratio 7.3 RATIO (10-20); Calcium,Total 9.6 mg/dL (7.6-11.0); Carbon Dioxide 26.5 mmol/L (21.0-32.0); Chloride 104 mmol/L (98-108); Creatinine, Serum 1.04 mg/dL (0.70-1.20); EST Glomerular Filtration Rate 100 (>60); Estimated Creatinine Clearance 161.05 ml/min (50-250); Glucose 102 mg/dL (70-99); Potassium 4.3 mmol/L (3.3-5.1); Sodium Level 139 mmol/L (133-145)
--- NOTE | 2025-01-05 07:54 | PN.SURG_ITS ---
Subjective Subjective Patient seen and examined during AM rounds. Is found sitting up in chair. He reports that he is feeling somewhat better than yesterday. He states he is encouraged because he has looked up his laboratories and found his white count to be slightly down trended even from yesterday. He does report some nausea in response to his diet but suspects it is because he is quite hungry. He reports presence of bowel movements. Objective Data Objective Data Vital Signs: Vital Signs Temp Pulse Resp BP Pulse Ox O2 Del Method 97.6 F L 52 L 16 132/65 H 98 Room Air 01/05/25 02:41 01/05/25 02:41 01/05/25 02:41 01/05/25 02:41 01/05/25 02:41 01/05/25 02:41 Oxygen Delivery Method Room Air Weight: 314 lb Body Mass Index (BMI) 17602.8 Intake & Output: Intake and Output for Last 24 Hours 01/03/25 01/04/25 01/05/25 23:59 23:59 23:59 Intake Total 2490.00 / 2490.00 2133 / 2133 Balance 2490.00 / 2490.00 213 / 213 Lab / Micro Data 01/05/25 05:37 01/05/25 05:37 Labs: Laboratory Results - last 24 hr 01/05/25 05:37: WBC 9.3, RBC 4.96, Hgb 14.1, Hct 44.0, MCV 88.7, MCH 28.4, MCHC 32.0, RDW Std Deviation 40.8, RDW Coeff of Gray 12.5, Plt Count 233, MPV 12.5 H, Immature Gran % (Auto) 0.300, Neut % (Auto) 55.5, Lymph % (Auto) 30.2, [place] % (Auto) 11.7 H, Eos % (Auto) 1.5, Baso % (Auto) 0.8, Absolute Neuts (auto) 5.1, Absolute Lymphs (auto) 2.80, Nucleated RBC % 0, Sodium 139, Potassium 4.3, Chloride 104, Carbon Dioxide 26.5, Anion Gap 9, BUN 8, Creatinine 1.04, Estim Creat Clear Calc 161.05, Est GFR (MDRD) Non-Af 100, BUN/Creatinine Ratio 7.3 L, Glucose 102 H, Calcium 9.6 Radiography Diagnostic Testing: Radiology Impression Abdomen/Pelvis CT 01/04/25 11:45 IMPRESSION: Splenomegaly, unchanged. There is acute sigmoid diverticulitis with single wall thickness measuring 1.8 cm with a adjacent air and inflammation collection consistent with local perforation measuring 5.5 by 4.2 cm, coronal image 58/138, similar to the prior. Inflammatory stranding is noted extending into the lower right pericolic gutter and pelvis. There is no organized drainable collection. Reading Location: [facility] Physical Exam Const oriented x3 and no apparent distress Resp normal respiratory effort GI GI Narrative: Soft, nondistended, nontender to palpation x 4 quadrants and particularly over the left lower quadrant Assessment & Plan Assessment/Plan (1) Abdominal pain, acute: (2) Perforation of sigmoid colon due to diverticulitis: PLAN: Plan Patient is a 29-year-old male who is hospital day 4 for admission for perforated diverticulitis. He tolerated his full liquid diet without difficulty apart from some nausea which she attributes to some hunger pings and reports ongoing bowel activity. Additionally his white blood cell count, already within normal limits, continues to downtrend ?Advance to a transitional diet for lunch and monitor for tolerance Disposition: Plan for discharge to home provided transition above goes uneventfully. Expect patient to complete 10-day course of oral antibiotics and follow-up as an outpatient to schedule colonoscopy Deric De Anda MD General Surgery Endocrine Surgery Pager: [facility] [address] [place] [address], [facility], [address] [place] [address] Office: [phone] Charges/Coding Visit Charges Inpatient E&M: 08484 [facility] Hosp L2
[2025-01-05] MEDS: Amox/Clavulanate 875 MG Tablet PO (08:15)
[2025-01-05 08:16] VITALS: BP 138/64; PULSE 67; RESP 16; TEMP 37.2; O2SAT 99
--- NOTE | 2025-01-05 13:47 | DCINST_ITS ---
Discharge Instructions Diet Discharge Diet: - (transitional diet) DC O2, CPAP, BIPAP needs Home O2 Discharge instructions: No Dressing / Incision Additional Activity Instructions:: Advised against returning to weightlifting until first follow-up Dressing / Incision Call your doctor if you observe: Fever of 101 or Higher, Inability to have a bowel movement and Uncontrolled pain Follow Up Care Please Follow Up With: Deric De Anda MD When: 1.5-2 weeks Test Results: Test results from this visit will be discussed in further detail at your follow- up appointment, if applicable. Discharge Plan Admission Admit Date/Time: 01/02/25 16:37 Primary Reason for Your Visit: Acute diverticulitis Attending Provider: Chema Morris Primary Care Provider: Aria Ovalle Discharge Orders/Prescriptions Prescriptions: New amoxicillin-pot clavulanate 875-125 mg Tablet 1 tab PO BIDCM 10 Days Qty: 20 0RF Discontinued amoxicillin-pot clavulanate 875-125 mg tablet 1 tab PO BID Referrals / Follow Up: Aira Ovalle MD [Primary Care Provider] - Disposition Disposition (needs filled in before D/C Order can be placed): Home, Self Care
[2025-01-05 13:48] VITALS: BP 130/65; PULSE 68; RESP 16; TEMP 36.6; O2SAT 98
--- NOTE | 2025-01-05 13:50 | DS.PCM_ITS ---
Providers Date of Admission: 01/02/25 Primary Care Physician: Dr. Aria Ovalle MD Reason For Visit: DIVERTICULITIS WITH PHLEGMON Diagnosis Discharge Diagnosis (1) Abdominal pain, acute: Status: Acute Code(s): R10.9 - Unspecified abdominal pain (2) Perforation of sigmoid colon due to diverticulitis: Status: Acute Code(s): K57.20 - Diverticulitis of large intestine with perforation and abscess without bleeding Plan Patient is a 29-year-old male who is hospital day 3 for admission for perforated diverticulitis. He has remained afebrile throughout the course of his stay and today reports complete resolution of his presenting symptoms. Labs show resolution of both his leukocytosis and his left shift. Discussed possibility of simply resuming his diet based on his clinical improvements but given his need for readmission would like some objective evidence beyond his exam to say that his disease process is stable or improving. Therefore, opting for repeat CT imaging. Will have this completed today. ?Continue IV antibiotics until results of CT. Then may consider transition to Augmentin but would favor monitoring to see that white blood cell count remains within normal limits before discharge. ?Continue clear liquid diet with Ensure protein clear supplementation until results of CTA returned. If results are permissive we will consider advancing diet. Deric De Anda MD General Surgery Endocrine Surgery Pager: [facility] [address] [place] [address], [address] [place] [address] Office: [phone] Medications at Discharge Home Medications amoxicillin 875 mg-potassium clavulanate 125 mg tablet 1 tab PO BIDCM 10 days #20 tabs 01/05/25 Hospital Course Operations None Summary of Care Provided Hospital Course: Patient is a 29-year-old male who required readmission to the hospital for management of his acute complicated diverticulitis after a brief admission less than a week prior. Admission was occasioned by recurrence of significant left lower quadrant pain and CT imaging showing some progression of the inflammatory process of his left lower quadrant. Yet, his exam on emergency room evaluation did not show evidence of peritoneal signs show he was returned to a conservative course of management. This included restriction of his diet to a clear liquid diet for the first 2 days of his hospitalization and resumption of IV antibiotics. At just shy of [address] imaging was repeated showing stability of his disease process. And the name of remaining conservative with his management he was slowly advanced with his diet at this point and transition to oral antibiotics. His white blood cell count and exam were carefully monitored with these transitions. Mr. Gómez continued to endorse improvements in his abdominal discomfort and denied any intolerance of his diet or antibiotics. Further, his white blood cell count continued to downtrend and was within normal limits. He was thus granted discharge to home at his request with the expectation clearly outlined for outpatient follow-up. Antibiotics were continued and a dietary restriction was also advised. Physical Exam Const alert, oriented x3 and no apparent distress Resp normal respiratory effort GI soft to palpation, non-tender and non-distended Weight / BMI Weight Weight: 314 lb Body Mass Index (BMI) 22110.8 ABG / Lab / Microbiology Data 01/05/25 05:37 01/05/25 05:37 Laboratory: Laboratory Results - last 24 hr 01/05/25 05:37: WBC 9.3, RBC 4.96, Hgb 14.1, Hct 44.0, MCV 88.7, MCH 28.4, MCHC 32.0, RDW Std Deviation 40.8, RDW Coeff of Gray 12.5, Plt Count 233, MPV 12.5 H, Immature Gran % (Auto) 0.300, Neut % (Auto) 55.5, Lymph % (Auto) 30.2, [place] % (Auto) 11.7 H, Eos % (Auto) 1.5, Baso % (Auto) 0.8, Absolute Neuts (auto) 5.1, Absolute Lymphs (auto) 2.80, Nucleated RBC % 0, Sodium 139, Potassium 4.3, Chloride 104, Carbon Dioxide 26.5, Anion Gap 9, BUN 8, Creatinine 1.04, Estim Creat Clear Calc 161.05, Est GFR (MDRD) Non-Af 100, BUN/Creatinine Ratio 7.3 L, Glucose 102 H, Calcium 9.6 D/C Instructions Discharge Diet: - (transitional diet) Additional Activity Instructions: Advised against returning to weightlifting until first follow-up Call your doctor if you observe: Fever of 101 or Higher, Inability to have a bowel movement and Uncontrolled pain DC O2, CPAP, BIPAP Needs Home O2 Discharge instructions: No Please Follow Up With: Deric De Anda MD When: 1.5-2 weeks Meaningful Use Info Meaningful Use Meaningful Use Diagnoses (Choose all that apply): None applicable Ischemic Stroke Statin Dosing Therapy Reference: STATIN DOSE THERAPY REFERENCE: * Patients > 75 years receive moderate or high dose statin therapy. * Patients 75 years or YOUNGER should receive HIGH intensity statin dose unless contraindicated. You will be required to document reason for non-treatment if statin daily dose does not meet guidelines. HIGH DOSE STATIN THERAPY DAILY Atorvastatin > than or = to 40 mg Rosuvastatin > than or = to 20 mg Amlodipine + Atorvastatin > than or = to 2.5/40 mg Ezetimibe + Simvastatin 10/80 mg Simvastatin 80mg Discharge Plan Admission Admit Date/Time: 01/02/25 16:37 Primary Reason for Your Visit: Acute diverticulitis Attending Provider: Chema Morris Primary Care Provider: Aria Ovalle Discharge Orders/Prescriptions Prescriptions: New amoxicillin-pot clavulanate 875-125 mg Tablet 1 tab PO BIDCM 10 Days Qty: 20 0RF Discontinued amoxicillin-pot clavulanate 875-125 mg tablet 1 tab PO BID Referrals / Follow Up: Aria Ovalle MD [Primary Care Provider] - Disposition Disposition (needs filled in before D/C Order can be placed): Home, Self Care
--- NOTE | 2025-01-05 14:30 | PHA.DC.MR.R ---
Pharmacy [place] Med Reconciliation Pharmacy Service has performed discharge medication reconciliation for this patient. The patient's discharge medication list was reviewed for discrepancies and discrepancies were resolved. Medications at Discharge Home Medications amoxicillin 875 mg-potassium clavulanate 125 mg tablet 1 tab PO BIDCM 10 days #20 tabs 01/05/25
== END 2025-01-05 15:05 | disposition home or self-care (01) | DRG 392 ==
LOC: ED 13:53 → MS3 17:05
PROVIDERS: Admitting Provider Surgery; Emergency Provider Emergency Medicine; PCP Internal Medicine; Visit Provider Surgery
DX: K57.20 Diverticulitis of large intestine with perforation and abscess without bleeding (principal); I10 Essential (primary) hypertension
CPT/HCPCS: 36415; 74177; 80048; 80053; 83690; 85025; 97802; 99283; 99406; Q9967; A4216

== ENCOUNTER → 2025-05-10 | Outpatient (CLI) | payer BC, SELFPAY ==
--- NOTE | 2025-05-10 09:50 | RAD_ITS ---
PROCEDURE: KNEE 4 OR MORE VIEWS 05/10/2025 REASON FOR EXAM: Recent injury. Pain TECHNIQUE: Procedure Code: RADKN Modality: DX Procedure: KNEE 4 OR MORE VIEWS Laterality: Right knee COMPARISON: None FINDINGS: Bones: No fracture. No suspicious bone lesion. Joints: Normal alignment. Effusion: No effusion. Soft tissues: Soft tissues are unremarkable. Other: RAD/Knee 4 or More Views IMPRESSION: NO EFFUSION ACUTE FRACTURE OR DISLOCATION. Reading Location: [id number]
== END | disposition home or self-care (01) ==
PROVIDERS: PCP Internal Medicine; Referring Provider Physician Assistant Surgical; Visit Provider Physician Assistant Surgical
DX: M25.561 Pain in right knee (principal)
CPT/HCPCS: 73564